=== PATIENT | male | born 1950 | race Caucasian/White ===

== ENCOUNTER 2016-12-03 23:14 | Observation (INO) | payer MEDICARE ==
[2016-12-03 23:15] VITALS: PULSE 127; BMI 25.9
--- NOTE | 2016-12-04 01:27 | C.PDOC ---
History Of Present Illness Pt presents with palpitations and chest pain worsening over the last 2-3 days. No f/c/n/v . Speaking in complete sentences. Time Seen by Provider: 12/04/16 01:26 Chief Complaint (Nursing): Chest Pain History Per: Patient History/Exam Limitations: no limitations Onset/Duration Of Symptoms: Days Current Symptoms Are (Timing): Still Present Context: Other Severity: Moderate Pain Scale Rating Of: 4 Quality: Dull Associated Symptoms: denies: Nausea, Dyspnea Modifying Factors: None Exacerbating Factors: Movement, Exertion Alleviating Factors: None Recent travel outside of the [place]: No Additional History Per: Patient Past Medical History Reviewed: Historical Data, Nursing Documentation, Vital Signs Vital Signs: Last Vital Signs Temp 97.6 F 12/03/16 23:39 Pulse 63 12/04/16 02:09 Resp 16 12/04/16 02:09 BP 90/56 L 12/04/16 02:09 Pulse Ox 98 12/04/16 02:09 - Medical History PMH: Anxiety, Atrial Fibrillation, CAD, Cardia Arrhythmia (pacemaker, last changed in 2012, AICD fired in ED after run of [employer]), CHF, HTN, Hypercholesterolemia, Peripheral Edema, Pneumonia (LONG AGO), TIA (MAYBE NOT SURE) Denies: Chronic Kidney Disease Surgical History: Pacemaker (last changed in 11/21/15) - 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 AUTOMATIC IMPLANT CARDIOVERTER/DEFIBRILLATOR (AICD) CHECK (06/15/13) CORONAR ARTERIOGR-2 CATH (07/18/13) INFLUENZA VACCINATION (07/04/14) LEFT HEART CARDIAC CATH (07/18/13) LT HEART ANGIOCARDIOGRAM (07/18/13) JEWISH OF CARDIAC RHYTHM, SINGLE (12/10/15) Family History: States: No Known Family Hx - Social History Hx Tobacco Use: No Hx Alcohol Use: No Hx Substance Use: No - Immunization History Hx Tetanus Toxoid Vaccination: No Hx Influenza Vaccination: Yes (07/2016) Hx Pneumococcal Vaccination: Yes (2012) Review Of Systems Constitutional: Negative for: Fever, Chills Eyes: Negative for: Redness ENT: Negative for: Throat Pain Cardiovascular: Positive for: Chest Pain, Palpitations Respiratory: Negative for: Shortness of Breath Gastrointestinal: Negative for: Nausea, Vomiting, Abdominal Pain Genitourinary: Negative for: Dysuria Musculoskeletal: Negative for: Back Pain Skin: Negative for: Rash, Lesions, Jaundice, Bruising Neurological: Negative for: Weakness Psych: Negative for: Anxiety Physical Exam - Physical Exam Appears: Non-toxic, No Acute Distress Skin: Warm, Dry Oral Mucosa: Moist Neck: Supple Chest: Symmetrical, Other (pacer left chest wall) Cardiovascular: Rhythm Regular Respiratory: No Rales, No Rhonchi, No Wheezing Gastrointestinal/Abdominal: Soft, No Tenderness, No Distention Back: Normal Inspection Extremity: Normal ROM Extremity: Bilateral: Atraumatic, Normal Color And Temperature, Normal ROM Neurological/Psych: Oriented x3, Normal Speech, Normal Cognition Gait: Steady ED Course And Treatment - Laboratory Results Result Diagrams: 12/04/16 01:37 12/04/16 01:37 ECG: Interpreted By Me, Viewed By Me ECG Rhythm: Sinus Rhythm (63), Nonspecific Changes (atrial sensed ventricular paced) O2 Sat by Pulse Oximetry: 97 Pulse Ox Interpretation: Normal - Radiology CXR: Interpreted by Me, Viewed By Me CXR Interpretation: Yes: Other (r pacer in place, unchanged from 08/2016). No: Infiltrates, Fracture, Pnemothorax Progress Note: cardiac work up Disposition Discussed With DrHéctor: Farhat Russo Jr. Comment: accepted the pt on his service and took over the care at 2:35 AM Doctor Will See Patient In The: ED Counseled Patient/Family Regarding: Studies Performed, Diagnosis - Disposition Disposition: HOSPITALIZED Disposition Time: 01:38 Condition: FAIR - Clinical Impression Clinical Impression: Congestive heart failure, Chest pain, Elevated brain natriuretic peptide (BNP) level, Hypothyroidism Decision To Admit - Pt Status Changed To: Hospital Disposition Of: Observation - . Bed Request Type: Telemetry Admitting Physician: Farhat Russo Jr. Patient Diagnosis: Congestive heart failure, Chest pain, Elevated brain natriuretic peptide (BNP) level
[2016-12-04 01:40] LABS: BASO # 0.1 K/uL (0.0-0.2); EOS # 0.1 K/uL (0.0-0.7); EOS % 1.1 % (0.0-4.0); HEMATOCRIT 38.9 % (35.0-51.0); LYMPH # 1.3 K/uL (1.0-4.3); LYMPH % 21.5 % (20.0-40.0); MEAN CELL VOLUME 98.1 fL (80.0-94.0); MEAN CORPUSCULAR HEMOGLOBIN 32.7 pg (27.0-31.0); MEAN CORPUSCULAR HGB CONC 33.3 g/dL (33.0-37.0); MEAN PLATELET VOLUME 9.8 fL (7.2-11.7); MONO # 0.9 K/uL (0.0-0.8); MONO % 15.3 % (0.0-10.0); NRBC % 0.1 % (0.0-2.0); RED CELL DISTRIBUTION WIDTH 13.5 % (11.5-14.5); WHITE BLOOD COUNT 6.1 K/uL (4.8-10.8)
[2016-12-04 01:47] LABS: CHLORIDE 97 mmol/L (98-107); INR 1.2
[2016-12-04 01:48] LABS: POTASSIUM 3.6 mmol/L (3.6-5.2); SODIUM 137 mmol/L (132-148)
[2016-12-04 01:50] LABS: ALB/GLOB RATIO 1.4 (1.0-2.1); AST/SGOT 25 U/L (17-59); BILIRUBIN,TOTAL 0.4 mg/dL (0.2-1.3); CARBON DIOXIDE 27 mmol/L (22-30); GFR AFRICAN-AMERICAN > 60; TOTAL PROTEIN 6.9 g/dL (6.3-8.3)
[2016-12-04 01:51] LABS: ALKALINE PHOSPHATASE 33 U/L (38-126); ALT/SGPT 29 U/L (21-72); BLOOD UREA NITROGEN 18 mg/dL (9-20); CALCIUM 8.7 mg/dl (8.6-10.4); GLUCOSE,RANDOM 102 mg/dL (75-110)
[2016-12-04 04:04] LABS: URINE BILIRUBIN NEGATIVE (NEGATIVE); URINE BLOOD NEGATIVE (NEGATIVE); URINE COLOR Straw (YELLOW); URINE GLUCOSE (UA) NORMAL (Normal); URINE KETONE NEGATIVE (NEGATIVE); URINE LEUKOCYTE ESTERASE NEG Leu/uL (Negative); URINE PROTEIN NEGATIVE (NEGATIVE); URINE UROBILINOGEN NORMAL mg/dL (0.2-1.0); WBC URINE 1 /hpf (0-5)
--- NOTE | 2016-12-04 06:22 | CP.PCM.HP ---
History of Present Illness - History of Present Illness History of Present Illness: Internal medicine H & P for Dr. Jyoti Krishnan, PGY-1 Pt S & E at bedside. 66M w/PMH sig for HTN, aortic valve disease s/p surgery admitted for chest pain x 1 day. Pain is constant, located in left chest with varying intensity since onset, severe, non radiating. Admits to non productive cough, occasional headaches. Denies N/V/F/C, SOB, abdominal pain, congestion, sore throat, back pain, blurry vision, constipation, diarrhea, dysuria, urinary frequency. PMH: HTN, aortic valve disease PSH: Aortic valve surgery All: PCN SH: Denies ETOH/Tobacco/Illicit drug use PMD: Karan Cards: Nic Present on Admission - Present on Admission Any Indicators Present on Admission: No History of DVT/PE: No History of Uncontrolled Diabetes: No Urinary Catheter: No Decubitus Ulcer Present: No Review of Systems - Review of Systems All systems: reviewed and no additional remarkable complaints except - Constitutional Constitutional: Headache. absent: Chills, Fever - EENT Eyes: absent: Change in Vision Ears: absent: Dizziness Nose/Mouth/Throat: absent: Sore Throat - Cardiovascular Cardiovascular: Chest Pain. absent: Diaphoresis, Leg Edema - Respiratory Respiratory: Cough. absent: As Per HPI - Gastrointestinal Gastrointestinal: absent: Abdominal Pain, Nausea, Vomiting - Genitourinary Genitourinary: absent: Change in Urinary Stream, Dysuria - Musculoskeletal Musculoskeletal: absent: Back Pain - Integumentary Integumentary: absent: New Lesions - Neurological Neurological: absent: Weakness Past Patient History - Infectious Disease Hx of Infectious Diseases: None ( ) - Tetanus Immunizations Tetanus Immunization: Unknown - Past Medical History & Family History Past Medical History?: Yes - Past Social History Smoking Status: Never Smoked - CARDIAC Hx Atrial Fibrillation: Yes Hx Cardia Arrhythmia: Yes (pacemaker, last changed in 2012, AICD fired in ED after run of [employer]) Hx Congestive Heart Failure: Yes Hx Hypercholesterolemia: Yes Hx Hypertension: Yes Hx Pacemaker: Yes (last changed in 11/21/15) Hx Peripheral Edema: Yes - PULMONARY Hx Respiratory Disorders: Yes Hx Pneumonia: Yes (LONG AGO) - NEUROLOGICAL Hx Neurological Disorder: Yes Hx Transient Ischemic Attacks (TIA): Yes (MAYBE NOT SURE) - HEENT Other/Comment: wears glasses for reading - RENAL Hx Chronic Kidney Disease: No - ENDOCRINE/METABOLIC Hx Endocrine Disorders: No - HEMATOLOGICAL/ONCOLOGICAL Hx Blood Disorders: No - INTEGUMENTARY Hx Dermatological Problems: No - MUSCULOSKELETAL/RHEUMATOLOGICAL Hx Falls: No - GASTROINTESTINAL Hx Gastrointestinal Disorders: No - GENITOURINARY/GYNECOLOGICAL Hx Genitourinary Disorders: Yes Hx Prostate Problems: Yes ("OK NOW") - PSYCHIATRIC Hx Substance Use: No - SURGICAL HISTORY Hx Surgeries: Yes Hx Cardiac Catheterization: Yes (last done in December 2014) Hx Open Heart Surgery: Yes (1996, s/p prosthetic aortic valve placement) Hx Valve Replacement: Yes Other/Comment: ICD 21-NOV-2015. no additional information given - ANESTHESIA Hx Anesthesia: Yes Hx Anesthesia Reactions: No Hx Malignant Hyperthermia: No Meds Allergies/Adverse Reactions: Allergies Allergy/AdvReac Type Severity Reaction Status Date / Time orange juice Allergy Verified 12/03/16 23:41 Penicillins Allergy Verified 12/03/16 23:41 polyethylene glycol Allergy Verified 12/03/16 23:41 sodium bicarbonate Allergy Verified 12/03/16 23:41 lemon-[place] flavor Allergy Uncoded 12/03/16 23:41 Physical Exam - Constitutional Appears: Non-toxic, No Acute Distress - Head Exam Head Exam: ATRAUMATIC, NORMAL INSPECTION, NORMOCEPHALIC - Eye Exam Eye Exam: EOMI, Normal appearance, PERRL Pupil Exam: NORMAL ACCOMODATION, PERRL - ENT Exam ENT Exam: Mucous Membranes Moist, Normal Exam - Neck Exam Neck exam: Positive for: Full Rom, Normal Inspection - Respiratory Exam Respiratory Exam: Clear to Auscultation Bilateral, NORMAL BREATHING PATTERN. absent: Accessory Muscle Use, Chest Wall Tenderness, Rales, Rhonchi, Wheezes - Cardiovascular Exam Cardiovascular Exam: REGULAR RHYTHM, +S1, +S2 - GI/Abdominal Exam GI & Abdominal Exam: Normal Bowel Sounds, Soft. absent: Tenderness - Extremities Exam Extremities exam: Positive for: normal inspection. Negative for: pedal edema, tenderness - Back Exam Back exam: NORMAL INSPECTION - Neurological Exam Neurological exam: Alert, CN II-XII Intact, Oriented x3 - Psychiatric Exam Psychiatric exam: Normal Affect, Normal Mood - Skin Skin Exam: Dry, Intact, Normal Color, Warm Additional comments: Well healed midline chest scar Results - Vital Signs Recent Vital Signs: Last Vital Signs Temp 97.4 F L 12/04/16 04:05 Pulse 60 12/04/16 04:05 Resp 20 12/04/16 04:05 BP 94/58 L 12/04/16 04:05 Pulse Ox 96 12/04/16 04:05 - Labs Result Diagrams: 12/04/16 01:37 12/04/16 01:37 Labs: Laboratory Results - last 24 hr 12/04/16 03:58 Urine Color Straw Urine Clarity Clear Urine pH 6.0 Ur Specific [place] 1.004 Urine Protein Negative Urine Glucose (UA) Normal Urine Ketones Negative Urine Blood Negative Urine Nitrate Negative Urine Bilirubin Negative Urine Urobilinogen Normal Ur Leukocyte Esterase Neg Urine WBC (Auto) 1 Ur Squamous Epith Cells < 1 Assessment & Plan - Assessment and Plan (Free Text) Assessment: Chest pain Admit to tele FU serial EKGs FU serial ROMIs FU lipid panel FU A1c TSH 11.3 BNP 1999 Troponin neg x 1 Cont home med: Amiodarone, Crestor, ASA, Renexa cardio consulted- Nic HTN Cont home meds: Aldactone, Bumex, Toprol XL, Enalapril HLD Cont home med: Fenofibrate Constipation Cont home med: Colace, Headache Tylenol PRN Health maintenance meds Cont home meds: Vitamin C, MV, Feosol, Potassium Chloride GI/DVT ppx SCDs Heparin Protonix Dispo HHD VS Q6H DW attending - Date & Time Date: 12/04/16 Time: 04:00
[2016-12-04 06:44] LABS: CHOLESTEROL 90 mg/dL (0-199)
[2016-12-04] MEDS: Multivitamin With Minerals Tab PO SCH (09:55)
[2016-12-04] MEDS: Pantoprazole 20 mg EC Tab PO SCH (09:56)
[2016-12-04] MEDS: Metoprolol Succinate 50 mg XL Tab PO SCH (09:56)
[2016-12-04] MEDS: Ranolazine 500 mg Extended Release Tablets PO SCH ×2 (13:09→18:03)
--- NOTE | 2016-12-04 13:24 | CP.PCM.PN ---
Subjective - Date & Time of Evaluation Date of Evaluation: 12/04/16 Time of Evaluation: 08:15 - Subjective Subjective: Medicine Note- Hospitalist Service Patient was seen and examined at bedside. Patient reports no acute complaints at the moment. Patient appears comfortable in bed, resting. He states that for the last four days, he's had intermittent chest pain, and he came in because it became too intolerable. He says he has had chest pain like this before. No events overnight, per nursing. Objective - Vital Signs/Intake and Output Vital Signs (last 24 hours): Temp Pulse Resp BP Pulse Ox 98.6 F 60 20 100/58 L 98 12/04/16 07:55 12/04/16 07:55 12/04/16 07:55 12/04/16 09:56 12/04/16 07:55 Intake and Output: 12/04/16 12/04/16 06:59 18:59 Intake Total 240 Balance 240 - Medications Medications: Current Medications Acetaminophen (Tylenol 325mg Tab) 650 mg PO Q6 PRN PRN Reason: Headache Amiodarone HCl (Cordarone) 100 mg PO DAILY [facility] Last Admin: 12/04/16 13:08 Dose: 100 mg Ascorbic Acid (Vitamin C 500 Mg Tab) 500 mg PO DAILY [facility] Last Admin: 12/04/16 09:56 Dose: 500 mg Aspirin (Ecotrin) 81 mg PO QPM [facility] Bumetanide (Bumex) 1 mg PO DAILY [facility] Last Admin: 12/04/16 13:09 Dose: 1 mg Docusate Sodium (Colace) 100 mg PO BID [facility] Last Admin: 12/04/16 09:57 Dose: 100 mg Enalapril Maleate (Vasotec) 5 mg PO BID [facility] Last Admin: 12/04/16 09:56 Dose: 5 mg Fenofibrate (Tricor) 145 mg PO QPM [facility] Ferrous Sulfate (Feosol) 325 mg PO DAILY [facility] Last Admin: 12/04/16 09:57 Dose: 325 mg Heparin Sodium (Porcine) (Heparin) 5,000 units SC Q8 [facility] Last Admin: 12/04/16 13:12 Dose: 5,000 units Metoprolol Succinate (Toprol Xl) 50 mg PO DAILY [facility] Last Admin: 12/04/16 09:56 Dose: Not Given Multivitamins/Minerals (Therapeutic-M Tab) 1 tab PO DAILY [facility] Last Admin: 12/04/16 09:55 Dose: 1 tab Pantoprazole Sodium (Protonix Ec Tab) 20 mg PO DAILY [facility] Last Admin: 12/04/16 09:56 Dose: 20 mg Potassium Chloride (Klor-Con 10) 10 meq PO QPM [facility] Ranolazine (Ranexa) 1,000 mg PO BID [facility] Last Admin: 12/04/16 13:09 Dose: 1,000 mg Rosuvastatin Calcium (Crestor) 5 mg PO HS [facility] Spironolactone (Aldactone) 25 mg PO DAILY [facility] Last Admin: 12/04/16 09:57 Dose: 25 mg - Labs Labs: PT 13.3 SECONDS (9.7-12.2) H 12/04/16 01:37 INR 1.2 12/04/16 01:37 APTT 31 SECONDS (21-34) 12/04/16 01:37 - Constitutional Appears: Non-toxic, No Acute Distress - Head Exam Head Exam: ATRAUMATIC, NORMAL INSPECTION, NORMOCEPHALIC - Eye Exam Pupil Exam: NORMAL ACCOMODATION, PERRL - ENT Exam ENT Exam: Mucous Membranes Moist - Respiratory Exam Respiratory Exam: Clear to Ausculation Bilateral, NORMAL BREATHING PATTERN. absent: Prolonged Expiratory Phase, Rales, Rhonchi, Wheezes - Cardiovascular Exam Cardiovascular Exam: REGULAR RHYTHM, +S1, +S2 - GI/Abdominal Exam GI & Abdominal Exam: Soft, Normal Bowel Sounds. absent: Tenderness, Diminished Bowel Sounds, Hypoactive Bowel Sounds - Extremities Exam Extremities Exam: Normal Capillary Refill, Normal Inspection - Neurological Exam Neurological Exam: Alert, Awake, Oriented x3 - Psychiatric Exam Psychiatric exam: Normal Affect, Normal Mood - Skin Skin Exam: Dry, Intact, Normal Color, Warm Assessment and Plan - Assessment and Plan (Free Text) Assessment: Chest pain Admit to tele cardio consulted- Dr. Lucero- consulted Dr. Hercules for ICD check EKG- atrial sensed paced rhythm ROMIs negative x 3 Lipid panel normal HgbA1c pending TSH 11.3 BNP 2000 Troponin neg x 1 Cont home med: Amiodarone 100mg PO Daily HTN Cont home meds: Aldactone 25mg PO Daily Toprol XL 50mg PO Daily Enalapril 5mg PO BID Bumetanide 1mg PO Daily Hypothyroidism TSH 11.3 f/u repeat TSH and Free T4 HLD Cont home med: Fenofibrate 145mg PO QPM Lipid panel WNL Constipation Cont home med: Colace 100mg PO BID Headache Tylenol PRN Prophylactic measure Protonix 20mg PO Daily Heparin 5000U SC Q8h SCDs Cont home meds: Vitamin C, MV, Feosol 325mg PO Daily, Potassium Chloride Dispo HHD VS Q6H DW attending
--- NOTE | 2016-12-04 16:32 | RAD ---
PROCEDURE: CHEST RADIOGRAPH, 1 VIEW HISTORY: chest pain COMPARISON: Comparison chest 09/02/2026 FINDINGS: LUNGS: No acute consolidation or effusion. PLEURA: No pneumothorax or pleural fluid seen. CARDIOVASCULAR: Sternotomy wires again noted. Multi lead pacemaker/ defibrillator unchanged OSSEOUS STRUCTURES: No significant abnormalities. VISUALIZED UPPER ABDOMEN: Normal. OTHER FINDINGS: None. IMPRESSION: Cardiomegaly. No focal consolidation.
[2016-12-04 17:24] LABS: CHLORIDE 99 mmol/L (98-107); SODIUM 137 mmol/L (132-148)
[2016-12-04 17:26] LABS: ALB/GLOB RATIO 1.3 (1.0-2.1); ALKALINE PHOSPHATASE 32 U/L (38-126); AST/SGOT 34 U/L (17-59); BILIRUBIN,TOTAL 0.5 mg/dL (0.2-1.3); CARBON DIOXIDE 25 mmol/L (22-30); GFR AFRICAN-AMERICAN > 60; TOTAL PROTEIN 6.7 g/dL (6.3-8.3)
[2016-12-04 17:27] LABS: ALT/SGPT 20 U/L (21-72); BLOOD UREA NITROGEN 18 mg/dL (9-20); CALCIUM 8.4 mg/dl (8.6-10.4); GLUCOSE,RANDOM 87 mg/dL (75-110); PHOSPHOROUS 3.3 mg/dL (2.5-4.5)
[2016-12-04] MEDS: Potassium Chloride 10 mEq ER Tab PO SCH (18:03)
--- NOTE | 2016-12-04 20:22 | CP.PCM.CON ---
History of Present Illness - History of Present Illness History of Present Illness: Reason For Consultation: Chest Pain 66M w/PMH sig for HTN, aortic valve disease s/p AVR admitted for chest pain x 1 day. Pain is constant, located in left chest with varying intensity since onset , severe, non radiating. Admits to non productive cough, occasional headaches. Denies N/V/F/C, SOB, abdominal pain, congestion, sore throat, back pain, blurry vision, constipation, diarrhea, dysuria, urinary frequency. PMH: HTN, aortic valve disease PSH: S/P AVR All: PCN SH: Denies ETOH/Tobacco/Illicit drug use PMD: Russo Present on Admission - Present on Admission Any Indicators Present on Admission: No History of DVT/PE: No History of Uncontrolled Diabetes: No Urinary Catheter: No Decubitus Ulcer Present: No Review of Systems - Review of Systems All systems: reviewed and no additional remarkable complaints except - Constitutional Constitutional: Headache. absent: Chills, Fever - EENT Eyes: absent: Change in Vision Ears: absent: Dizziness Nose/Mouth/Throat: absent: Sore Throat - Cardiovascular Cardiovascular: Chest Pain. absent: Diaphoresis, Leg Edema - Respiratory Respiratory: Cough. absent: As Per HPI - Gastrointestinal Gastrointestinal: absent: Abdominal Pain, Nausea, Vomiting - Genitourinary Genitourinary: absent: Change in Urinary Stream, Dysuria - Musculoskeletal Musculoskeletal: absent: Back Pain - Integumentary Integumentary: absent: New Lesions - Neurological Neurological: absent: Weakness - GENITOURINARY/GYNECOLOGICAL Hx Genitourinary Disorders: Yes Hx Prostate Problems: Yes ("OK NOW") - PSYCHIATRIC Hx Substance Use: No Meds Allergies/Adverse Reactions: Allergies Allergy/AdvReac Type Severity Reaction Status Date / Time orange juice Allergy Verified 12/03/16 23:41 Penicillins Allergy Verified 12/03/16 23:41 polyethylene glycol Allergy Verified 12/03/16 23:41 sodium bicarbonate Allergy Verified 12/03/16 23:41 lemon-[place] flavor Allergy Uncoded 12/03/16 23:41 Physical Exam - Constitutional Appears: Non-toxic, No Acute Distress - Head Exam Head Exam: ATRAUMATIC, NORMAL INSPECTION, NORMOCEPHALIC - Eye Exam Eye Exam: EOMI, Normal appearance, PERRL Pupil Exam: NORMAL ACCOMODATION, PERRL - ENT Exam ENT Exam: Mucous Membranes Moist, Normal Exam - Neck Exam Neck exam: Positive for: Full Rom, Normal Inspection - Respiratory Exam Respiratory Exam: Clear to Auscultation Bilateral, NORMAL BREATHING PATTERN. absent: Accessory Muscle Use, Chest Wall Tenderness, Rales, Rhonchi, Wheezes - Cardiovascular Exam Cardiovascular Exam: REGULAR RHYTHM, +S1, +S2 - GI/Abdominal Exam GI & Abdominal Exam: Normal Bowel Sounds, Soft. absent: Tenderness - Extremities Exam Extremities exam: Positive for: normal inspection. Negative for: pedal edema, tenderness - Back Exam Back exam: NORMAL INSPECTION - Neurological Exam Neurological exam: Alert, CN II-XII Intact, Oriented x3 - Psychiatric Exam Psychiatric exam: Normal Affect, Normal Mood - Skin Skin Exam: Dry, Intact, Normal Color, Warm Additional comments: Well healed midline chest scar Past Patient History - Infectious Disease Hx of Infectious Diseases: None ( ) - Tetanus Immunizations Tetanus Immunization: Unknown - Past Medical History & Family History Past Medical History?: Yes - Past Social History Smoking Status: Never Smoked - CARDIAC Hx Atrial Fibrillation: Yes Hx Cardia Arrhythmia: Yes (pacemaker, last changed in 2012, AICD fired in ED after run of [employer]) Hx Congestive Heart Failure: Yes Hx Hypercholesterolemia: Yes Hx Hypertension: Yes Hx Pacemaker: Yes (last changed in 11/21/15) Hx Peripheral Edema: Yes - PULMONARY Hx Respiratory Disorders: Yes Hx Pneumonia: Yes (LONG AGO) - NEUROLOGICAL Hx Neurological Disorder: Yes Hx Transient Ischemic Attacks (TIA): Yes (MAYBE NOT SURE) - HEENT Other/Comment: wears glasses for reading - RENAL Hx Chronic Kidney Disease: No - ENDOCRINE/METABOLIC Hx Endocrine Disorders: No - HEMATOLOGICAL/ONCOLOGICAL Hx Blood Disorders: No - INTEGUMENTARY Hx Dermatological Problems: No - MUSCULOSKELETAL/RHEUMATOLOGICAL Hx Falls: No - GASTROINTESTINAL Hx Gastrointestinal Disorders: No - GENITOURINARY/GYNECOLOGICAL Hx Genitourinary Disorders: Yes Hx Prostate Problems: Yes ("OK NOW") - PSYCHIATRIC Hx Substance Use: No - SURGICAL HISTORY Hx Surgeries: Yes Hx Cardiac Catheterization: Yes (last done in December 2014) Hx Open Heart Surgery: Yes (1996, s/p prosthetic aortic valve placement) Hx Valve Replacement: Yes Other/Comment: ICD 21-NOV-2015. no additional information given - ANESTHESIA Hx Anesthesia: Yes Hx Anesthesia Reactions: No Hx Malignant Hyperthermia: No Meds Allergies/Adverse Reactions: Allergies Allergy/AdvReac Type Severity Reaction Status Date / Time orange juice Allergy Verified 12/03/16 23:41 Penicillins Allergy Verified 12/03/16 23:41 polyethylene glycol Allergy Verified 12/03/16 23:41 sodium bicarbonate Allergy Verified 12/03/16 23:41 lemon-[place] flavor Allergy Uncoded 12/03/16 23:41 - Medications Medications: Current Medications Acetaminophen (Tylenol 325mg Tab) 650 mg PO Q6 PRN PRN Reason: Headache Amiodarone HCl (Cordarone) 100 mg PO DAILY [facility] Last Admin: 12/04/16 13:08 Dose: 100 mg Ascorbic Acid (Vitamin C 500 Mg Tab) 500 mg PO DAILY [facility] Last Admin: 12/04/16 09:56 Dose: 500 mg Aspirin (Ecotrin) 81 mg PO QPM [facility] Last Admin: 12/04/16 18:02 Dose: 81 mg Bumetanide (Bumex) 1 mg PO DAILY [facility] Last Admin: 12/04/16 13:09 Dose: 1 mg Docusate Sodium (Colace) 100 mg PO BID [facility] Last Admin: 12/04/16 18:02 Dose: 100 mg Enalapril Maleate (Vasotec) 5 mg PO BID [facility] Last Admin: 12/04/16 18:00 Dose: Not Given Fenofibrate (Tricor) 145 mg PO QPM [facility] Last Admin: 12/04/16 18:00 Dose: Not Given Ferrous Sulfate (Feosol) 325 mg PO DAILY [facility] Last Admin: 12/04/16 09:57 Dose: 325 mg Heparin Sodium (Porcine) (Heparin) 5,000 units SC Q8 [facility] Last Admin: 12/04/16 13:12 Dose: 5,000 units Metoprolol Succinate (Toprol Xl) 50 mg PO DAILY [facility] Last Admin: 12/04/16 09:56 Dose: Not Given Multivitamins/Minerals (Therapeutic-M Tab) 1 tab PO DAILY [facility] Last Admin: 12/04/16 09:55 Dose: 1 tab Pantoprazole Sodium (Protonix Ec Tab) 20 mg PO DAILY [facility] Last Admin: 12/04/16 09:56 Dose: 20 mg Potassium Chloride (Klor-Con 10) 10 meq PO QPM [facility] Last Admin: 12/04/16 18:03 Dose: 10 meq Ranolazine (Ranexa) 1,000 mg PO BID [facility] Last Admin: 12/04/16 18:03 Dose: 1,000 mg Rosuvastatin Calcium (Crestor) 5 mg PO [facility] Spironolactone (Aldactone) 25 mg PO DAILY [facility] Last Admin: 12/04/16 09:57 Dose: 25 mg Results - Vital Signs Recent Vital Signs: Last Vital Signs Temp 98.2 F 12/04/16 15:33 Pulse 63 12/04/16 15:33 Resp 18 12/04/16 15:33 BP 94/60 L 12/04/16 18:00 Pulse Ox 95 12/04/16 15:33 - Labs Result Diagrams: 12/04/16 01:37 12/04/16 16:57 Labs: Laboratory Results - last 24 hr 12/04/16 12/04/16 12/04/16 03:58 06:00 08:00 Sodium Potassium Chloride Carbon Dioxide Anion Gap BUN Creatinine Est GFR ( Amer) Est GFR (Non-Af Amer) Random Glucose Calcium Phosphorus Magnesium Total Bilirubin AST ALT Alkaline Phosphatase Total Creatine Kinase 51 L CK-MB (Mass) 1.02 Troponin I, Quant 0.0430 Total Protein Albumin Globulin Albumin/Globulin Ratio Triglycerides 81 D Cholesterol 90 LDL Cholesterol Direct 32 HDL Cholesterol 35 Urine Color Straw Urine Clarity Clear Urine pH 6.0 Ur Specific [place] 1.004 Urine Protein Negative Urine Glucose (UA) Normal Urine Ketones Negative Urine Blood Negative Urine Nitrate Negative Urine Bilirubin Negative Urine Urobilinogen Normal Ur Leukocyte Esterase Neg Urine WBC (Auto) 1 Ur Squamous Epith Cells < 1 12/04/16 16:57 Sodium 137 Potassium 4.0 Chloride 99 Carbon Dioxide 25 Anion Gap 16 BUN 18 Creatinine 1.4 Est GFR ( Amer) > 60 Est GFR (Non-Af Amer) 51 Random Glucose 87 Calcium 8.4 L Phosphorus 3.3 Magnesium 2.0 Total Bilirubin 0.5 AST 34 ALT 20 L D Alkaline Phosphatase 32 L Total Creatine Kinase 61 CK-MB (Mass) 1.02 Troponin I, Quant 0.0300 Total Protein 6.7 Albumin 3.8 Globulin 2.9 Albumin/Globulin Ratio 1.3 Triglycerides Cholesterol LDL Cholesterol Direct HDL Cholesterol Urine Color Urine Clarity Urine pH Ur Specific [place] Urine Protein Urine Glucose (UA) Urine Ketones Urine Blood Urine Nitrate Urine Bilirubin Urine Urobilinogen Ur Leukocyte Esterase Urine WBC (Auto) Ur Squamous Epith Cells Assessment & Plan - Assessment and Plan (Free Text) Assessment: Chest pain- Non Cardiac Recent Cath: Normal Coronaries Most likely [place] skeletal HTN Cont home meds: Aldactone 25mg PO Daily Toprol XL 50mg PO Daily Enalapril 5mg PO BID Bumetanide 1mg PO Daily Hypothyroidism TSH 11.3 f/u repeat TSH and Free T4 HLD Cont home med: Fenofibrate 145mg PO QPM Lipid panel WNL Chronic systolic CHF s/p AICD Consult Dr. Bautista for ICD check Headache Tylenol PRN Prophylactic measure Protonix 20mg PO Daily Heparin 5000U SC Q8h SCDs
[2016-12-05 06:21] LABS: BASO % 0.5 % (0.0-2.0); EOS # 0.1 K/uL (0.0-0.7); HEMATOCRIT 37.6 % (35.0-51.0); LYMPH % 13.9 % (20.0-40.0); MEAN CELL VOLUME 95.2 fL (80.0-94.0); MEAN CORPUSCULAR HEMOGLOBIN 33.2 pg (27.0-31.0); MEAN CORPUSCULAR HGB CONC 34.9 g/dL (33.0-37.0); MEAN PLATELET VOLUME 8.9 fL (7.2-11.7); MONO # 0.7 K/uL (0.0-0.8); MONO % 9.7 % (0.0-10.0); RED CELL DISTRIBUTION WIDTH 13.5 % (11.5-14.5); WHITE BLOOD COUNT 6.8 K/uL (4.8-10.8)
[2016-12-05 06:29] LABS: CHLORIDE 100 mmol/L (98-107)
[2016-12-05 06:30] LABS: POTASSIUM 3.4 mmol/L (3.6-5.2); SODIUM 139 mmol/L (132-148)
[2016-12-05 06:32] LABS: ALB/GLOB RATIO 1.3 (1.0-2.1); ALKALINE PHOSPHATASE 34 U/L (38-126); ALT/SGPT 24 U/L (21-72); AST/SGOT 25 U/L (17-59); BILIRUBIN,TOTAL 0.6 mg/dL (0.2-1.3); BLOOD UREA NITROGEN 19 mg/dL (9-20); CARBON DIOXIDE 25 mmol/L (22-30); GFR AFRICAN-AMERICAN > 60; TOTAL PROTEIN 6.9 g/dL (6.3-8.3)
[2016-12-05 06:33] LABS: CALCIUM 8.4 mg/dl (8.6-10.4); GLUCOSE,RANDOM 105 mg/dL (75-110)
[2016-12-05 07:01] LABS: THYROID STIMULATING HORMONE 5.65 mIU/L (0.46-4.68)
--- NOTE | 2016-12-05 07:01 | CP.PCM.PN ---
Subjective - Date & Time of Evaluation Date of Evaluation: 12/05/16 Time of Evaluation: 08:25 Objective - Vital Signs/Intake and Output Vital Signs (last 24 hours): Temp Pulse Resp BP Pulse Ox 98.8 F 75 20 107/67 96 12/04/16 23:15 12/04/16 23:15 12/04/16 23:15 12/04/16 23:15 12/04/16 23:15 - Medications Medications: Current Medications Acetaminophen (Tylenol 325mg Tab) 650 mg PO Q6 PRN PRN Reason: Headache Amiodarone HCl (Cordarone) 100 mg PO DAILY [facility] Last Admin: 12/04/16 13:08 Dose: 100 mg Ascorbic Acid (Vitamin C 500 Mg Tab) 500 mg PO DAILY [facility] Last Admin: 12/04/16 09:56 Dose: 500 mg Aspirin (Ecotrin) 81 mg PO QPM [facility] Last Admin: 12/04/16 18:02 Dose: 81 mg Bumetanide (Bumex) 1 mg PO DAILY [facility] Last Admin: 12/04/16 13:09 Dose: 1 mg Docusate Sodium (Colace) 100 mg PO BID [facility] Last Admin: 12/04/16 18:02 Dose: 100 mg Enalapril Maleate (Vasotec) 5 mg PO BID [facility] Last Admin: 12/04/16 18:00 Dose: Not Given Fenofibrate (Tricor) 145 mg PO QPM [facility] Last Admin: 12/04/16 18:00 Dose: Not Given Ferrous Sulfate (Feosol) 325 mg PO DAILY [facility] Last Admin: 12/04/16 09:57 Dose: 325 mg Heparin Sodium (Porcine) (Heparin) 5,000 units SC Q8 [facility] Last Admin: 12/05/16 05:07 Dose: Not Given Metoprolol Succinate (Toprol Xl) 50 mg PO DAILY [facility] Last Admin: 12/04/16 09:56 Dose: Not Given Multivitamins/Minerals (Therapeutic-M Tab) 1 tab PO DAILY [facility] Last Admin: 12/04/16 09:55 Dose: 1 tab Pantoprazole Sodium (Protonix Ec Tab) 20 mg PO DAILY [facility] Last Admin: 12/04/16 09:56 Dose: 20 mg Potassium Chloride (Klor-Con 10) 10 meq PO QPM [facility] Last Admin: 12/04/16 18:03 Dose: 10 meq Ranolazine (Ranexa) 1,000 mg PO BID [facility] Last Admin: 12/04/16 18:03 Dose: 1,000 mg Rosuvastatin Calcium (Crestor) 5 mg PO HS [facility] Last Admin: 12/04/16 22:13 Dose: 5 mg Spironolactone (Aldactone) 25 mg PO DAILY [facility] Last Admin: 12/04/16 09:57 Dose: 25 mg - Labs Labs: 12/05/16 06:13 12/05/16 06:13 PT 13.3 SECONDS (9.7-12.2) H 12/04/16 01:37 INR 1.2 12/04/16 01:37 APTT 34 SECONDS (21-34) 12/05/16 06:13 Assessment and Plan - Assessment and Plan (Free Text) Assessment: Chest pain Admit to tele cardio consulted- Dr. Lucero- consulted Dr. Hercules for ICD check EKG- atrial sensed paced rhythm ROMIs negative x 3 Lipid panel normal HgbA1c pending TSH 11.3 BNP 2000 Troponin neg x 1 Cont home med: Amiodarone 100mg PO Daily HTN Cont home meds: Aldactone 25mg PO Daily Toprol XL 50mg PO Daily Enalapril 5mg PO BID Bumetanide 1mg PO Daily Hypothyroidism TSH 11.3 f/u repeat TSH and Free T4 HLD Cont home med: Fenofibrate 145mg PO QPM Lipid panel WNL Constipation Cont home med: Colace 100mg PO BID Headache Tylenol PRN Prophylactic measure Protonix 20mg PO Daily Heparin 5000U SC Q8h SCDs Cont home meds: Vitamin C, MV, Feosol 325mg PO Daily, Potassium Chloride Dispo HHD VS Q6H DW attending
--- NOTE | 2016-12-05 08:34 | CP.PCM.CON ---
<Rafa Nogueira - Last Filed: 12/05/16 08:47> History of Present Illness - History of Present Illness History of Present Illness: Consult Note- Dr. Hercules' service Patient is a 66 year old male with PMHx of htn, aortic valve disease (rheumatic fever) that came in complaining of chest pain for one day, constant left sided , non radiating chest pain. Patient was seen by Dr. Lucero, who believes the pain is likely noncardiac in nature. We were consulted to evaluate for ICD function. Patient reports that since he has been here, his chest pain has resolved. PMH: HTN, aortic valve disease PSH: Aortic valve surgery All: PCN SH: Denies ETOH/Tobacco/Illicit drug use PMD: [employer]: Nic Review of Systems - Constitutional Constitutional: absent: Chills, Fever, Weight Loss - EENT Eyes: absent: Blurred Vision, Change in Vision - Cardiovascular Cardiovascular: absent: Chest Pain, Claudication, Leg Edema, Palpitations, Pedal Edema - Respiratory Respiratory: absent: Cough, Dyspnea, Dyspnea on Exertion, Wheezing - Gastrointestinal Gastrointestinal: absent: Belching, Constipation, Diarrhea, Nausea, Vomiting - Musculoskeletal Musculoskeletal: absent: Back Pain, Myalgias, Numbness - Psychiatric Psychiatric: absent: Anhedonia, Panic Attacks, Suicidal Ideation, Tactile Hallucinations - Endocrine Endocrine: absent: Fatigue, Palpitations Past Patient History - Infectious Disease Hx of Infectious Diseases: None ( ) - Tetanus Immunizations Tetanus Immunization: Unknown - Past Medical History & Family History Past Medical History?: Yes - Past Social History Smoking Status: Former Smoker Chewing Tobacco Use: No Cigar Use: No Alcohol: None Drugs: Denies - CARDIAC Hx Atrial Fibrillation: Yes Hx Cardia Arrhythmia: Yes (pacemaker, last changed in 2012, AICD fired in ED after run of PATHEOS) Hx Congestive Heart Failure: Yes Hx Hypercholesterolemia: Yes Hx Hypertension: Yes Hx Pacemaker: Yes (last changed in 11/21/15) Hx Peripheral Edema: Yes - PULMONARY Hx Respiratory Disorders: Yes Hx Pneumonia: Yes (LONG AGO) - NEUROLOGICAL Hx Neurological Disorder: Yes Hx Transient Ischemic Attacks (TIA): Yes (MAYBE NOT SURE) - HEENT Other/Comment: wears glasses for reading - RENAL Hx Chronic Kidney Disease: No - ENDOCRINE/METABOLIC Hx Endocrine Disorders: No - HEMATOLOGICAL/ONCOLOGICAL Hx Blood Disorders: No - INTEGUMENTARY Hx Dermatological Problems: No - MUSCULOSKELETAL/RHEUMATOLOGICAL Hx Falls: No - GASTROINTESTINAL Hx Gastrointestinal Disorders: No - GENITOURINARY/GYNECOLOGICAL Hx Genitourinary Disorders: Yes Hx Prostate Problems: Yes ("OK NOW") - PSYCHIATRIC Hx Substance Use: No - SURGICAL HISTORY Hx Surgeries: Yes Hx Cardiac Catheterization: Yes (last done in December 2014) Hx Open Heart Surgery: Yes (1996, s/p prosthetic aortic valve placement) Hx Valve Replacement: Yes Other/Comment: ICD 21-NOV-2015. no additional information given - ANESTHESIA Hx Anesthesia: Yes Hx Anesthesia Reactions: No Hx Malignant Hyperthermia: No Meds Allergies/Adverse Reactions: Allergies Allergy/AdvReac Type Severity Reaction Status Date / Time orange juice Allergy Verified 12/03/16 23:41 Penicillins Allergy Verified 12/03/16 23:41 polyethylene glycol Allergy Verified 12/03/16 23:41 sodium bicarbonate Allergy Verified 12/03/16 23:41 lemon-kiana flavor Allergy Uncoded 12/03/16 23:41 - Medications Medications: Current Medications Acetaminophen (Tylenol 325mg Tab) 650 mg PO Q6 PRN PRN Reason: Headache Amiodarone HCl (Cordarone) 100 mg PO DAILY [facility] Last Admin: 12/04/16 13:08 Dose: 100 mg Ascorbic Acid (Vitamin C 500 Mg Tab) 500 mg PO DAILY [facility] Last Admin: 12/04/16 09:56 Dose: 500 mg Aspirin (Ecotrin) 81 mg PO QPM [facility] Last Admin: 12/04/16 18:02 Dose: 81 mg Bumetanide (Bumex) 1 mg PO DAILY [facility] Last Admin: 12/04/16 13:09 Dose: 1 mg Docusate Sodium (Colace) 100 mg PO BID [facility] Last Admin: 12/04/16 18:02 Dose: 100 mg Enalapril Maleate (Vasotec) 5 mg PO BID [facility] Last Admin: 12/04/16 18:00 Dose: Not Given Fenofibrate (Tricor) 145 mg PO QPM [facility] Last Admin: 12/04/16 18:00 Dose: Not Given Ferrous Sulfate (Feosol) 325 mg PO DAILY [facility] Last Admin: 12/04/16 09:57 Dose: 325 mg Heparin Sodium (Porcine) (Heparin) 5,000 units SC Q8 [facility] Last Admin: 12/05/16 05:07 Dose: Not Given Metoprolol Succinate (Toprol Xl) 50 mg PO DAILY [facility] Last Admin: 12/04/16 09:56 Dose: Not Given Multivitamins/Minerals (Therapeutic-M Tab) 1 tab PO DAILY [facility] Last Admin: 12/04/16 09:55 Dose: 1 tab Pantoprazole Sodium (Protonix Ec Tab) 20 mg PO DAILY [facility] Last Admin: 12/04/16 09:56 Dose: 20 mg Potassium Chloride (Klor-Con 10) 10 meq PO QPM [facility] Last Admin: 12/04/16 18:03 Dose: 10 meq Ranolazine (Ranexa) 1,000 mg PO BID [facility] Last Admin: 12/04/16 18:03 Dose: 1,000 mg Rosuvastatin Calcium (Crestor) 5 mg PO HS [facility] Last Admin: 12/04/16 22:13 Dose: 5 mg Spironolactone (Aldactone) 25 mg PO DAILY [facility] Last Admin: 12/04/16 09:57 Dose: 25 mg Physical Exam - Constitutional Appears: Non-toxic, No Acute Distress - Head Exam Head Exam: ATRAUMATIC, NORMAL INSPECTION, NORMOCEPHALIC - Eye Exam Pupil Exam: NORMAL ACCOMODATION - ENT Exam ENT Exam: Mucous Membranes Moist - Respiratory Exam Respiratory Exam: Clear to Auscultation Bilateral, NORMAL BREATHING PATTERN. absent: Prolonged Expiratory Phase, Rales, Rhonchi, Wheezes - Cardiovascular Exam Cardiovascular Exam: REGULAR RHYTHM, +S1, +S2 Additional comments: pacemaker in place - GI/Abdominal Exam GI & Abdominal Exam: Normal Bowel Sounds, Soft. absent: Distended, Firm, Guarding, Tenderness - Extremities Exam Extremities exam: Positive for: normal capillary refill, pedal pulses present - Neurological Exam Neurological exam: Alert, CN II-XII Intact, Oriented x3 - Psychiatric Exam Psychiatric exam: Normal Affect, Normal Mood - Skin Skin Exam: Dry, Intact, Normal Color, Warm Results - Vital Signs Recent Vital Signs: Last Vital Signs Temp 98.8 F 12/04/16 23:15 Pulse 75 12/04/16 23:15 Resp 20 12/04/16 23:15 BP 107/67 12/04/16 23:15 Pulse Ox 96 12/04/16 23:15 - Labs Result Diagrams: 12/05/16 06:13 12/05/16 06:13 Labs: Laboratory Results - last 24 hr 12/04/16 12/04/1617 08:00 16:57 06:13 WBC 6.8 RBC 3.94 L Hgb 13.1 Hct 37.6 MCV 95.2 H D MCH 33.2 H MCHC 34.9 RDW 13.5 Plt Count 149 MPV 8.9 Neut % (Auto) 74.9 Lymph % (Auto) 13.9 L [place] % (Auto) 9.7 Eos % (Auto) 1.0 Baso % (Auto) 0.5 Neut # 5.1 Lymph # 1.0 [place] # 0.7 Eos # 0.1 Baso # 0.0 APTT 34 Sodium 137 139 Potassium 4.0 3.4 L Chloride 99 100 Carbon Dioxide 25 25 Anion Gap 16 17 BUN 18 19 Creatinine 1.4 1.2 Est GFR ( Amer) > 60 > 60 Est GFR (Non-Af Amer) 51 > 60 Random Glucose 87 105 Calcium 8.4 L 8.4 L Phosphorus 3.3 Magnesium 2.0 Total Bilirubin 0.5 0.6 AST 34 25 ALT 20 L D 24 Alkaline Phosphatase 32 L 34 L Total Creatine Kinase 51 L 61 CK-MB (Mass) 1.02 1.02 Troponin I, Quant 0.0430 0.0300 Total Protein 6.7 6.9 Albumin 3.8 3.9 Globulin 2.9 3.0 Albumin/Globulin Ratio 1.3 1.3 Free T4 1.29 TSH 3rd Generation 5.65 H Assessment & Plan - Assessment and Plan (Free Text) Assessment: 66 year year old male presented to the ED complaining of chest pain, hx of htn and valvular heart disease, s/p surgery. Patient has a pacemaker in place. Per Dr. Hercules, it was interrogated today, fully functioal, no V tach detected. Patient is okay to be discharged home from his standpoint. <Rohan Hercules - Last Filed: 12/06/16 10:23> Results - Vital Signs Recent Vital Signs: Last Vital Signs Temp 98.6 F 12/05/16 15:22 Pulse 81 12/05/16 15:30 Resp 18 12/05/16 15:22 BP 94/58 L 12/05/16 18:11 Pulse Ox 95 12/05/16 15:22 - Labs Result Diagrams: 12/05/16 06:13 12/05/16 06:13 Labs: Laboratory Results - last 24 hr 12/04/16 06:00 Hemoglobin A1c 5.6 Attending/Attestation - Attestation I have personally seen and examined this patient.: Yes I have fully participated in the care of the patient.: Yes I have reviewed all pertinent clinical information: Yes Notes (Text): 12/06/16 10:23 icd ok interrogation follow up in office and Dr Russo
[2016-12-05 08:56] VITALS: RESP 18
[2016-12-05] MEDS ORDERED: Promethazine/Cod 6.25mg-10mg/5ml Syr UD PO PRN (10:55)
[2016-12-05] MEDS ORDERED: guaiFENesin 600 mg ER Tab PO ONE ×2 (10:56→16:07)
[2016-12-05] MEDS: Multivitamin With Minerals Tab PO SCH (10:59)
[2016-12-05] MEDS: Ranolazine 500 mg Extended Release Tablets PO SCH ×2 (10:59→18:10)
[2016-12-05] MEDS: Pantoprazole 20 mg EC Tab PO SCH (11:01)
[2016-12-05] MEDS: Metoprolol Succinate 50 mg XL Tab PO SCH (11:02)
[2016-12-05 15:24] VITALS: PULSE 81; TEMP 98.6; O2SAT 95
[2016-12-05] MEDS ORDERED: Simethicone 80 mg Chewtab PO ONE (16:07)
--- NOTE | 2016-12-05 17:46 | CP.PCM.PN ---
Subjective - Date & Time of Evaluation Date of Evaluation: 12/05/16 Time of Evaluation: 08:10 - Subjective Subjective: Patient is a 66 year old male with PMHx of htn, aortic valve disease (rheumatic fever) that came in complaining of chest pain for one day, constant left sided , non radiating chest pain. PMH: HTN, aortic valve disease PSH: Aortic valve surgery All: PCN SH: Denies ETOH/Tobacco/Illicit drug use PMD: [employer] Review of Systems - Constitutional Constitutional: absent: Chills, Fever, Weight Loss - EENT Eyes: absent: Blurred Vision, Change in Vision - Cardiovascular Cardiovascular: absent: Chest Pain, Claudication, Leg Edema, Palpitations, Pedal Edema - Respiratory Respiratory: absent: Cough, Dyspnea, Dyspnea on Exertion, Wheezing - Gastrointestinal Gastrointestinal: absent: Belching, Constipation, Diarrhea, Nausea, Vomiting - Musculoskeletal Musculoskeletal: absent: Back Pain, Myalgias, Numbness - Psychiatric Psychiatric: absent: Anhedonia, Panic Attacks, Suicidal Ideation, Tactile Hallucinations - Endocrine Endocrine: absent: Fatigue, Palpitations Past Patient History - Infectious Disease Hx of Infectious Diseases: None ( ) - Tetanus Immunizations Tetanus Immunization: Unknown - Past Medical History & Family History Past Medical History?: Yes - Past Social History Smoking Status: Former Smoker Chewing Tobacco Use: No Cigar Use: No Alcohol: None Drugs: Denies - CARDIAC Hx Atrial Fibrillation: Yes Hx Cardia Arrhythmia: Yes (pacemaker, last changed in 2012, AICD fired in ED after run of indidebt) Hx Congestive Heart Failure: Yes Hx Hypercholesterolemia: Yes Hx Hypertension: Yes Hx Pacemaker: Yes (last changed in 11/21/15) Hx Peripheral Edema: Yes - PULMONARY Hx Respiratory Disorders: Yes Hx Pneumonia: Yes (LONG AGO) - NEUROLOGICAL Hx Neurological Disorder: Yes Hx Transient Ischemic Attacks (TIA): Yes (MAYBE NOT SURE) - HEENT Other/Comment: wears glasses for reading - RENAL Hx Chronic Kidney Disease: No - ENDOCRINE/METABOLIC Hx Endocrine Disorders: No - HEMATOLOGICAL/ONCOLOGICAL Hx Blood Disorders: No - INTEGUMENTARY Hx Dermatological Problems: No - MUSCULOSKELETAL/RHEUMATOLOGICAL Hx Falls: No - GASTROINTESTINAL Hx Gastrointestinal Disorders: No - GENITOURINARY/GYNECOLOGICAL Hx Genitourinary Disorders: Yes Hx Prostate Problems: Yes ("OK NOW") - PSYCHIATRIC Hx Substance Use: No - SURGICAL HISTORY Hx Surgeries: Yes Hx Cardiac Catheterization: Yes (last done in December 2014) Hx Open Heart Surgery: Yes (1996, s/p prosthetic aortic valve placement) Hx Valve Replacement: Yes Other/Comment: ICD -NOV-2015. no additional information given - ANESTHESIA Hx Anesthesia: Yes Hx Anesthesia Reactions: No Hx Malignant Hyperthermia: No Meds Allergies/Adverse Reactions: Allergies Allergy/AdvReac Type Severity Reaction Status Date / Time orange juice Allergy Verified 12/03/16 23:41 Penicillins Allergy Verified 12/03/16 23:41 polyethylene glycol Allergy Verified 12/03/16 23:41 sodium bicarbonate Allergy Verified 12/03/16 23:41 lemon-[place] flavor Allergy Uncoded 12/03/16 23:41 - Medications Medications: Current Medications Acetaminophen (Tylenol 325mg Tab) 650 mg PO Q6 PRN PRN Reason: Headache Amiodarone HCl (Cordarone) 100 mg PO DAILY [facility] Last Admin: 12/04/16 13:08 Dose: 100 mg Ascorbic Acid (Vitamin C 500 Mg Tab) 500 mg PO DAILY [facility] Last Admin: 12/04/16 09:56 Dose: 500 mg Aspirin (Ecotrin) 81 mg PO QPM [facility] Last Admin: 12/04/16 18:02 Dose: 81 mg Bumetanide (Bumex) 1 mg PO DAILY [facility] Last Admin: 12/04/16 13:09 Dose: 1 mg Docusate Sodium (Colace) 100 mg PO BID [facility] Last Admin: 12/04/16 18:02 Dose: 100 mg Enalapril Maleate (Vasotec) 5 mg PO BID [facility] Last Admin: 12/04/16 18:00 Dose: Not Given Fenofibrate (Tricor) 145 mg PO QPM [facility] Last Admin: 12/04/16 18:00 Dose: Not Given Ferrous Sulfate (Feosol) 325 mg PO DAILY [facility] Last Admin: 12/04/16 09:57 Dose: 325 mg Heparin Sodium (Porcine) (Heparin) 5,000 units SC Q8 [facility] Last Admin: 12/05/16 05:07 Dose: Not Given Metoprolol Succinate (Toprol Xl) 50 mg PO DAILY [facility] Last Admin: 12/04/16 09:56 Dose: Not Given Multivitamins/Minerals (Therapeutic-M Tab) 1 tab PO DAILY [facility] Last Admin: 12/04/16 09:55 Dose: 1 tab Pantoprazole Sodium (Protonix Ec Tab) 20 mg PO DAILY [facility] Last Admin: 12/04/16 09:56 Dose: 20 mg Potassium Chloride (Klor-Con 10) 10 meq PO QPM [facility] Last Admin: 12/04/16 18:03 Dose: 10 meq Ranolazine (Ranexa) 1,000 mg PO BID [facility] Last Admin: 12/04/16 18:03 Dose: 1,000 mg Rosuvastatin Calcium (Crestor) 5 mg PO HS [facility] Last Admin: 12/04/16 22:13 Dose: 5 mg Spironolactone (Aldactone) 25 mg PO DAILY [facility] Last Admin: 12/04/16 09:57 Dose: 25 mg Physical Exam - Constitutional Appears: Non-toxic, No Acute Distress - Head Exam Head Exam: ATRAUMATIC, NORMAL INSPECTION, NORMOCEPHALIC - Eye Exam Pupil Exam: NORMAL ACCOMODATION - ENT Exam ENT Exam: Mucous Membranes Moist - Respiratory Exam Respiratory Exam: Clear to Auscultation Bilateral, NORMAL BREATHING PATTERN. absent: Prolonged Expiratory Phase, Rales, Rhonchi, Wheezes - Cardiovascular Exam Cardiovascular Exam: REGULAR RHYTHM, +S1, +S2 Additional comments: pacemaker in place - GI/Abdominal Exam GI & Abdominal Exam: Normal Bowel Sounds, Soft. absent: Distended, Firm, Guarding, Tenderness - Extremities Exam Extremities exam: Positive for: normal capillary refill, pedal pulses present - Neurological Exam Neurological exam: Alert, CN II-XII Intact, Oriented x3 - Psychiatric Exam Psychiatric exam: Normal Affect, Normal Mood - Skin Skin Exam: Dry, Intact, Normal Color, Warm Objective - Vital Signs/Intake and Output Vital Signs (last 24 hours): Temp Pulse Resp BP Pulse Ox 98.6 F 81 18 96/55 L 95 12/05/16 15:22 12/05/16 15:22 12/05/16 15:22 12/05/16 15:22 12/05/16 15:22 - Medications Medications: Current Medications Acetaminophen (Tylenol 325mg Tab) 650 mg PO Q6 PRN PRN Reason: Headache Last Admin: 12/05/16 16:35 Dose: 650 mg Amiodarone HCl (Cordarone) 100 mg PO DAILY [facility] Last Admin: 12/05/16 11:01 Dose: 100 mg Ascorbic Acid (Vitamin C 500 Mg Tab) 500 mg PO DAILY [facility] Last Admin: 12/05/16 11:00 Dose: 500 mg Aspirin (Ecotrin) 81 mg PO QPM [facility] Last Admin: 12/04/16 18:02 Dose: 81 mg Bumetanide (Bumex) 1 mg PO DAILY [facility] Last Admin: 12/05/16 11:00 Dose: 1 mg Docusate Sodium (Colace) 100 mg PO BID [facility] Last Admin: 12/05/16 11:00 Dose: 100 mg Enalapril Maleate (Vasotec) 5 mg PO BID [facility] Last Admin: 12/05/16 11:00 Dose: 5 mg Fenofibrate (Tricor) 145 mg PO QPM [facility] Last Admin: 12/04/16 18:00 Dose: Not Given Ferrous Sulfate (Feosol) 325 mg PO DAILY [facility] Last Admin: 12/05/16 11:02 Dose: 325 mg Heparin Sodium (Porcine) (Heparin) 5,000 units SC Q8 [facility] Last Admin: 12/05/16 14:31 Dose: Not Given Metoprolol Succinate (Toprol Xl) 50 mg PO DAILY [facility] Last Admin: 12/05/16 11:02 Dose: 50 mg Multivitamins/Minerals (Therapeutic-M Tab) 1 tab PO DAILY [facility] Last Admin: 12/05/16 10:59 Dose: 1 tab Pantoprazole Sodium (Protonix Ec Tab) 20 mg PO DAILY [facility] Last Admin: 12/05/16 11:01 Dose: 20 mg Potassium Chloride (Klor-Con 10) 10 meq PO QPM [facility] Last Admin: 12/04/16 18:03 Dose: 10 meq Promethazine HCl/Codeine (Phenergan/Codeine Oral Syrup) 5 ml PO Q4 PRN PRN Reason: Cough Ranolazine (Ranexa) 1,000 mg PO BID [facility] Last Admin: 12/05/16 10:59 Dose: 1,000 mg Rosuvastatin Calcium (Crestor) 5 mg PO HS [facility] Last Admin: 12/04/16 22:13 Dose: 5 mg Spironolactone (Aldactone) 25 mg PO DAILY [facility] Last Admin: 12/05/16 11:00 Dose: 25 mg - Labs Labs: 12/05/16 06:13 12/05/16 06:13 PT 13.3 SECONDS (9.7-12.2) H 12/04/16 01:37 INR 1.2 12/04/16 01:37 APTT 34 SECONDS (21-34) 12/05/16 06:13 Assessment and Plan - Assessment and Plan (Free Text) Assessment: - Assessment and Plan (Free Text) Assessment: Chest pain- Non Cardiac Recent Cath: Normal Coronaries Most likely [place] skeletal HTN Cont home meds: Aldactone 25mg PO Daily Toprol XL 50mg PO Daily Enalapril 5mg PO BID Bumetanide 1mg PO Daily Hypothyroidism TSH 11.3 f/u repeat TSH and Free T4 HLD Cont home med: Fenofibrate 145mg PO QPM Lipid panel WNL Chronic systolic CHF s/p AICD Consult Dr. Bautista for ICD check Headache Tylenol PRN Prophylactic measure Protonix 20mg PO Daily Heparin 5000U SC Q8h SCDs
[2016-12-05] MEDS: Potassium Chloride 10 mEq ER Tab PO SCH (18:10)
[2016-12-05 18:16] VITALS: BP 94/58
--- NOTE | 2016-12-05 21:58 | CP.PCM.DIS ---
Provider - Provider Date of Admission: 12/04/16 02:34 Attending physician: Farhat Russo Jr, MD Primary care physician: Dr. Russo Consults: Cardio- Dr. Lucero Cardio- Dr. Hercules Time Spent in preparation of Discharge (in minutes): 45 Diagnosis - Discharge Diagnosis (1) Chest pain Status: Acute Comment: ROMIs negative x 3. Cleared to go home by Dr. Lucero and Dr. Hercules. Hospital Course - Lab Results Lab Results: Most Recent Lab Values WBC 6.8 K/uL (4.8-10.8) 12/05/16 06:13 RBC 3.94 Mil/uL (4.40-5.90) L 12/05/16 06:13 Hgb 13.1 g/dL (12.0-18.0) 12/05/16 06:13 Hct 37.6 % (35.0-51.0) 12/05/16 06:13 MCV 95.2 fL (80.0-94.0) H D 12/05/16 06:13 MCH 33.2 pg (27.0-31.0) H 12/05/16 06:13 MCHC 34.9 g/dL (33.0-37.0) 12/05/16 06:13 RDW 13.5 % (11.5-14.5) 12/05/16 06:13 Plt Count 149 K/uL (130-400) 12/05/16 06:13 MPV 8.9 fL (7.2-11.7) 12/05/16 06:13 Neut % (Auto) 74.9 % (50.0-75.0) 12/05/16 06:13 Lymph % (Auto) 13.9 % (20.0-40.0) L 12/05/16 06:13 [place] % (Auto) 9.7 % (0.0-10.0) 12/05/16 06:13 Eos % (Auto) 1.0 % (0.0-4.0) 12/05/16 06:13 Baso % (Auto) 0.5 % (0.0-2.0) 12/05/16 06:13 Neut # 5.1 K/uL (1.8-7.0) 12/05/16 06:13 Lymph # 1.0 K/uL (1.0-4.3) 12/05/16 06:13 [place] # 0.7 K/uL (0.0-0.8) 12/05/16 06:13 Eos # 0.1 K/uL (0.0-0.7) 12/05/16 06:13 Baso # 0.0 K/uL (0.0-0.2) 12/05/16 06:13 PT 13.3 SECONDS (9.7-12.2) H 12/04/16 01:37 INR 1.2 12/04/16 01:37 APTT 34 SECONDS (21-34) 12/05/16 06:13 Sodium 139 mmol/L (132-148) 12/05/16 06:13 Potassium 3.4 mmol/L (3.6-5.2) L 12/05/16 06:13 Chloride 100 mmol/L (98-107) 12/05/16 06:13 Carbon Dioxide 25 mmol/L (22-30) 12/05/16 06:13 Anion Gap 17 (10-20) 12/05/16 06:13 BUN 19 mg/dL (9-20) 12/05/16 06:13 Creatinine 1.2 MG/DL (0.8-1.5) 12/05/16 06:13 Est GFR ( Amer) > 60 12/05/16 06:13 Est GFR (Non-Af Amer) > 60 12/05/16 06:13 Random Glucose 105 mg/dL (75-110) 12/05/16 06:13 Calcium 8.4 mg/dl (8.6-10.4) L 12/05/16 06:13 Phosphorus 3.3 mg/dL (2.5-4.5) 12/04/16 16:57 Magnesium 2.0 mg/dL (1.6-2.3) 12/04/16 16:57 Total Bilirubin 0.6 mg/dL (0.2-1.3) 12/05/16 06:13 AST 25 U/L (17-59) 12/05/16 06:13 ALT 24 U/L (21-72) 12/05/16 06:13 Alkaline Phosphatase 34 U/L (38-126) L 12/05/16 06:13 Total Creatine Kinase 61 U/L (55-170) 12/04/16 16:57 CK-MB (Mass) 1.02 ng/mL (0.0-3.38) 12/04/16 16:57 Troponin I 0.0510 ng/mL (0.00-0.120) 12/04/16 01:37 Troponin I, Quant 0.0300 ng/mL (0.00-0.120) 12/04/16 16:57 NT-Pro-B Natriuret Pep 2000 pg/mL (0-900) H 12/04/16 01:37 Total Protein 6.9 g/dL (6.3-8.3) 12/05/16 06:13 Albumin 3.9 g/dL (3.5-5.0) 12/05/16 06:13 Globulin 3.0 gm/dL (2.2-3.9) 12/05/16 06:13 Albumin/Globulin Ratio 1.3 (1.0-2.1) 12/05/16 06:13 Triglycerides 81 mg/dL (0-149) D 12/04/16 06:00 Cholesterol 90 mg/dL (0-199) 12/04/16 06:00 LDL Cholesterol Direct 32 mg/dL (0-129) 12/04/16 06:00 HDL Cholesterol 35 mg/dL (30-70) 12/04/16 06:00 Free T4 1.29 ng/dL (0.78-2.19) 12/05/16 06:13 TSH 3rd Generation 5.65 mIU/L (0.46-4.68) H 12/05/16 06:13 Urine Color Straw (YELLOW) 12/04/16 03:58 Urine Clarity Clear (Clear) 12/04/16 03:58 Urine pH 6.0 (5.0-8.0) 12/04/16 03:58 Ur Specific [place] 1.004 (1.003-1.030) 12/04/16 03:58 Urine Protein Negative mg/dL (NEGATIVE) 12/04/16 03:58 Urine Glucose (UA) Normal mg/dL (Normal) 12/04/16 03:58 Urine Ketones Negative mg/dL (NEGATIVE) 12/04/16 03:58 Urine Blood Negative (NEGATIVE) 12/04/16 03:58 Urine Nitrate Negative (NEGATIVE) 12/04/16 03:58 Urine Bilirubin Negative (NEGATIVE) 12/04/16 03:58 Urine Urobilinogen Normal mg/dL (0.2-1.0) 12/04/16 03:58 Ur Leukocyte Esterase Neg [place]/uL (Negative) 12/04/16 03:58 Urine WBC (Auto) 1 /hpf (0-5) 12/04/16 03:58 Ur Squamous Epith Cells < 1 /hpf (0-5) 12/04/16 03:58 - Hospital Course Hospital Course: As per admission documentation: 66M w/PMH sig for HTN, aortic valve disease s/p surgery admitted for chest pain x 1 day. Pain is constant, located in left chest with varying intensity since onset, severe, non radiating. Admits to non productive cough, occasional headaches. Denies N/V/F/C, SOB, abdominal pain, congestion, sore throat, back pain, blurry vision, constipation, diarrhea, dysuria, urinary frequency. Patient was admitted to the hospital for ACS workup. ROMIs negative x 3. Consulted Dr. Lucero, who evaluated and said it was likely musculoskeletal. Patients chest pain resolved. Dr. Hercules was consulted, pacemaker was interrogated, deemed fully functional with no v tach detected. Cleared for discharge. Followup with PMD in 1 week. Discharge Exam - Head Exam Head Exam: ATRAUMATIC, NORMAL INSPECTION, NORMOCEPHALIC Discharge Plan - Follow Up Plan Condition: FAIR Disposition: HOME/ ROUTINE Instructions: Heart Failure (DC), Atrial Fibrillation (DC), Chest Pain (DC), Pacemaker (DC) Additional Instructions: Please discharge patient home, as per Dr. Russo. Patient is to continue taking home medications as instructed. Patient is to followup with Dr. Russo in 1 week. If symptoms worsen, please return to the hospital for further evaluation and treatment.
--- NOTE | 2016-12-05 22:12 | CARD ---
APPROVED REPORT EKG Measurement Heart [id number] <Conclusion> AV sequential or dual chamber electronic pacemaker
--- NOTE | 2016-12-05 23:33 | CARD ---
APPROVED REPORT EKG Measurement Heart [id number] <Conclusion> Atrial-sensed ventricular-paced rhythm with occasional premature ventricular complexes Abnormal ECG
== END 2016-12-05 18:30 | disposition home or self-care (01) ==
LOC: C.ER 23:14 → C.9E 12-04 02:34 → C.6T 12-04 03:27
PROVIDERS: ADMIT Internal Medicine; ATTEND Internal Medicine
DX: R07.89 Other chest pain (principal); I11.0 Hypertensive heart disease with heart failure; I50.22 Chronic systolic (congestive) heart failure; R51 Headache; E03.9 Hypothyroidism, unspecified; R79.89 Other specified abnormal findings of blood chemistry; Z95.2 Presence of prosthetic heart valve; Z95.810 Presence of automatic (implantable) cardiac defibrillator; Z87.891 Personal history of nicotine dependence; E78.5 Hyperlipidemia, unspecified; K59.00 Constipation, unspecified; I48.91 Unspecified atrial fibrillation
CPT/HCPCS: 36415; 71010; 80053; 80061; 81001; 83036; 83735; 83880; 84100; 84439; 84443; 84484; 85025; 85610; 85730; 93005; 96374; 99285; G0378; J1644; J1940

== ENCOUNTER 2016-12-27 11:26 | Inpatient (IN) | payer MEDICARE, OTHER ==
[2016-12-27 11:26] VITALS: PULSE 127; BMI 25.9
[2016-12-27 13:17] LABS: BASO # 0.1 K/uL (0.0-0.2); BASO % 0.9 % (0.0-2.0); EOS # 0.1 K/uL (0.0-0.7); EOS % 0.9 % (0.0-4.0); HEMATOCRIT 39.6 % (35.0-51.0); LYMPH # 1.4 K/uL (1.0-4.3); LYMPH % 23.9 % (20.0-40.0); MEAN CORPUSCULAR HEMOGLOBIN 32.2 pg (27.0-31.0); MEAN CORPUSCULAR HGB CONC 32.7 g/dL (33.0-37.0); MEAN PLATELET VOLUME 9.5 fL (7.2-11.7); MONO # 0.5 K/uL (0.0-0.8); MONO % 9.1 % (0.0-10.0); NRBC % 0.1 % (0.0-2.0); RED CELL DISTRIBUTION WIDTH 13.4 % (11.5-14.5); WHITE BLOOD COUNT 5.9 K/uL (4.8-10.8)
[2016-12-27 13:19] LABS: MEAN CELL VOLUME 98.4 fL (80.0-94.0)
[2016-12-27 13:34] LABS: CHLORIDE 102 mmol/L (98-107)
[2016-12-27 13:35] LABS: POTASSIUM 4.3 mmol/L (3.6-5.2); SODIUM 140 mmol/L (132-148)
[2016-12-27 13:37] LABS: ALB/GLOB RATIO 1.6 (1.0-2.1); ALKALINE PHOSPHATASE 42 U/L (38-126); ALT/SGPT 13 U/L (21-72); AST/SGOT 26 U/L (17-59); BILIRUBIN,TOTAL 0.4 mg/dL (0.2-1.3); BLOOD UREA NITROGEN 20 mg/dL (9-20); CARBON DIOXIDE 25 mmol/L (22-30); GFR AFRICAN-AMERICAN > 60; GLUCOSE,RANDOM 88 mg/dL (75-110); TOTAL PROTEIN 6.8 g/dL (6.3-8.3)
[2016-12-27 13:38] LABS: CALCIUM 8.7 mg/dl (8.6-10.4)
--- NOTE | 2016-12-27 14:00 | RAD ---
PROCEDURE: CHEST RADIOGRAPH, 1 VIEW HISTORY: Shortness of breath COMPARISON: None available. FINDINGS: LUNGS: Mild venous congestion. Left basilar airspace opacity with small left pleural effusion. PLEURA: As above. CARDIOVASCULAR: Cardiomegaly. Left-sided pacemaker. OSSEOUS STRUCTURES: No significant abnormalities. VISUALIZED UPPER ABDOMEN: Normal. OTHER FINDINGS: None. IMPRESSION: Mild venous congestion. Left basilar airspace opacity with small left pleural effusion.
[2016-12-27] MEDS ORDERED: Moxifloxacin IV 400mg/250ml NS 250 ML IV ONE (14:46)
[2016-12-27] MEDS ORDERED: Moxifloxacin IV 400mg/250ml NS 250 ML IVPB ONE (15:20)
--- NOTE | 2016-12-27 15:22 | C.PDOC ---
History Of Present Illness 66-year-old male, PMHx includes Atrial Fibrillation (s/p pacemaker), CABG, CAD, CHF, Hypertension, Hypercholesterolemia, presents to ER for midsternal chest pain and epigastric pain that started today. (+) cough. No radiation. Not aggravated by anything including deep breaths or movement. Also notes low blood pressure and high heart rate for the last couple days. Patient states he checks his BP and HR regularly. Patient denies nausea/vomiting, diarrhea, fevers/chills, shortness of breath, change in sensation, n/v. No other complaints at this time. PMD Farhat Russo MD. Cardiologists Dr Nic Gonzalez Time Seen by Provider: 12/27/16 12:41 Chief Complaint (Nursing): Chest Pain History Per: Patient History/Exam Limitations: no limitations Onset/Duration Of Symptoms: Hrs Current Symptoms Are (Timing): Still Present Past Medical History Reviewed: Historical Data, Nursing Documentation, Vital Signs Vital Signs: Last Vital Signs Temp 97.5 F L 12/27/16 17:04 Pulse 84 12/27/16 17:04 Resp 20 12/27/16 17:04 BP 102/70 12/27/16 17:04 Pulse Ox 99 12/27/16 18:42 - Medical History PMH: Anxiety, Atrial Fibrillation, CAD, Cardia Arrhythmia (pacemaker, last changed in 2012, AICD fired in ED after run of [employer]), CHF, HTN, Hypercholesterolemia, Peripheral Edema, Pneumonia (LONG AGO), TIA (MAYBE NOT SURE) Denies: Chronic Kidney Disease Surgical History: Pacemaker (last changed in 11/21/15) - [employer] Procedures AUTOMATIC IMPLANT CARDIOVERTER/DEFIBRILLATOR (AICD) CHECK (06/15/13) CORONAR ARTERIOGR-2 CATH (07/18/13) INFLUENZA VACCINATION (07/04/14) LEFT HEART CARDIAC CATH (07/18/13) LT HEART ANGIOCARDIOGRAM (07/18/13) TAOISM OF CARDIAC RHYTHM, SINGLE (12/10/15) Family History: States: Unknown Family Hx - Social History Hx Tobacco Use: No Hx Alcohol Use: No Hx Substance Use: No - Immunization History Hx Tetanus Toxoid Vaccination: No Hx Influenza Vaccination: Yes (07/2016) Hx Pneumococcal Vaccination: Yes (2012) Review Of Systems Except As Marked, All Systems Reviewed And Found Negative. Constitutional: Negative for: Fever, Chills Cardiovascular: Negative for: Palpitations Respiratory: Negative for: Shortness of Breath Gastrointestinal: Negative for: Nausea, Vomiting Musculoskeletal: Negative for: Back Pain Skin: Negative for: Rash Neurological: Negative for: Weakness, Numbness, Headache, Dizziness Physical Exam - Physical Exam Appears: Non-toxic, No Acute Distress, Other (anxious) Skin: Warm, Dry, Rash Head: Atraumatic, Normacephalic Eye(s): bilateral: Normal Inspection, EOMI Nose: Normal Oral Mucosa: Moist Lips: Normal Appearing Neck: Normal ROM Chest: Symmetrical Cardiovascular: Rhythm Regular Respiratory: Normal Breath Sounds, No Accessory Muscle Use Gastrointestinal/Abdominal: Soft, No Tenderness Back: No CVA Tenderness Extremity: Normal ROM Neurological/Psych: Oriented x3, Normal Speech ED Course And Treatment - Laboratory Results Result Diagrams: 12/27/16 13:12 12/27/16 13:12 ECG: Interpreted By Me, Viewed By Me ECG Rhythm: Sinus Rhythm, R BBB Interpretation Of ECG: +Changes from previous EKG on 12/05/16 Rate From EC O2 Sat by Pulse Oximetry: 99 - Radiology CXR: Viewed By Me, Read By Radiologist CXR Interpretation: Yes: Other (Mild venous congestion. Left basilar airspace opacity with small left pleural effusion.) Progress Note: Plan: Labs. Chest X-Ray reviewed: blood cultures and antibiotics ordered. Patient will be admitted to Dr Perez service Disposition - Disposition Disposition: HOSPITALIZED Disposition Time: 17:00 Condition: STABLE - Clinical Impression Clinical Impression: Chest pain, Elevated brain natriuretic peptide (BNP) level, Hypotension, Pneumonia - Scribe Statement The provider has reviewed the documentation as recorded by the Caitlyn Goodwin
--- NOTE | 2016-12-27 16:49 | CP.PCM.HP ---
History of Present Illness - History of Present Illness History of Present Illness: CC: Chest pain and SOB 66 year old male w/ PMH of HTN, aortic valve disease s/p surgery admitted for shortness of breath and chest pain. Patient stated that the pain started earleir today when he was on his way to the hospital to fill out [employer] papers while the SOB had present present for almost a week. He also had been complaining of low blood pressure and palpitations for about a week. Patient had experienced these symptoms before. He was recently hospitalized for chest pain in November. He rated the pain 6/10 in severity. He described the chest pain as an intermittent heaviness located in left chest without radiation. Nothing alleviate or exacerbated the pain. He describes shortness of breath worse with laying flat. Patient recently had ECHO done. Patient sleeps with 2 pillows. Patient reported to being able to walk 20 blocks before getting tired. Admitted to cough, fatigue, dizziness, orthopnea and abdominal pain. Denied numbness and tingling of the jaw, leg pain, fever/chills , abd pain, nausea, vomiting, diarrhea, incontinence. PMD: Dr. Russo PMH: HTN, aortic valve disease, CHF, CAD Meds: spironolactone 25mg QD, Ranexa 1000mg BID, KTab QPM, Omeprazole 20mg QD, Toprol XL 50mg QD, Enalapril 5mg BID, Lipitor 10mg QPM, Amiodarone 100mg QD, Bumetanide 1mg QD Allergies: penicillin, polyethylene glycol, sodium bicarbonate PSH: prosthetic aortic valve, pacemaker, CABG FH: noncontributory Social: Former light smoke quit 24+ years ago, denies EtOH, illict drug use. Unemployed and lives alone Present on Admission - Present on Admission Any Indicators Present on Admission: No History of DVT/PE: No History of Uncontrolled Diabetes: No Urinary Catheter: No Decubitus Ulcer Present: No Review of Systems - Review of Systems All systems: reviewed and no additional remarkable complaints except (as per HPI ) Past Patient History - Infectious Disease Hx of Infectious Diseases: None ( ) - Tetanus Immunizations Tetanus Immunization: Unknown - Past Medical History & Family History Past Medical History?: Yes - Past Social History Smoking Status: Former Smoker - CARDIAC Hx Atrial Fibrillation: Yes Hx Cardia Arrhythmia: Yes (pacemaker, last changed in 2012, AICD fired in ED after run of v-tach) Hx Congestive Heart Failure: Yes Hx Hypercholesterolemia: Yes Hx Hypertension: Yes Hx Pacemaker: Yes (last changed in 11/21/15) Hx Peripheral Edema: Yes - PULMONARY Hx Pneumonia: Yes (LONG AGO) - NEUROLOGICAL Hx Transient Ischemic Attacks (TIA): Yes (MAYBE NOT SURE) - HEENT Other/Comment: wears glasses for reading - RENAL Hx Chronic Kidney Disease: No - ENDOCRINE/METABOLIC Hx Endocrine Disorders: No - HEMATOLOGICAL/ONCOLOGICAL Hx Blood Disorders: No - INTEGUMENTARY Hx Dermatological Problems: No - MUSCULOSKELETAL/RHEUMATOLOGICAL Hx Falls: No - GASTROINTESTINAL Hx Gastrointestinal Disorders: No - GENITOURINARY/GYNECOLOGICAL Hx Genitourinary Disorders: No - PSYCHIATRIC Hx Anxiety: Yes Hx Substance Use: No - SURGICAL HISTORY Hx Surgeries: Yes Hx Cardiac Catheterization: Yes (last done in December 2014) Hx Open Heart Surgery: Yes (1996, s/p prosthetic aortic valve placement) Hx Valve Replacement: Yes Other/Comment: ICD 21-NOV-2015 - ANESTHESIA Hx Anesthesia: Yes Hx Anesthesia Reactions: No Hx Malignant Hyperthermia: No Meds Allergies/Adverse Reactions: Allergies Allergy/AdvReac Type Severity Reaction Status Date / Time Penicillins Allergy Verified 12/27/16 11:33 polyethylene glycol Allergy Verified 12/27/16 11:33 sodium bicarbonate Allergy Verified 12/27/16 11:33 Physical Exam - Constitutional Appears: No Acute Distress - Head Exam Head Exam: ATRAUMATIC, NORMOCEPHALIC - Eye Exam Eye Exam: EOMI, Normal appearance Pupil Exam: PERRL - ENT Exam ENT Exam: Mucous Membranes Moist, Normal Exam - Neck Exam Neck exam: Positive for: Normal Inspection - Respiratory Exam Respiratory Exam: Clear to Auscultation Bilateral, NORMAL BREATHING PATTERN. absent: Accessory Muscle Use, Chest Wall Tenderness, Respiratory Distress - Cardiovascular Exam Cardiovascular Exam: REGULAR RHYTHM, +S1, +S2 - GI/Abdominal Exam GI & Abdominal Exam: Normal Bowel Sounds, Soft. absent: Distended, Firm, Guarding, Hernia, Rebound, Tenderness - Extremities Exam Extremities exam: Positive for: normal capillary refill, pedal pulses present - Back Exam Back exam: absent: CVA tenderness (L), CVA tenderness (R) - Neurological Exam Neurological exam: Alert, CN II-XII Intact, Oriented x3 - Psychiatric Exam Psychiatric exam: Normal Affect, Normal Mood - Skin Skin Exam: Dry, Intact, Normal Color, Warm Results - Vital Signs Recent Vital Signs: Last Vital Signs Temp 97.7 F 12/27/16 11:33 Pulse 86 12/27/16 16:25 Resp 19 12/27/16 16:25 BP 94/61 L 12/27/16 16:25 Pulse Ox 97 12/27/16 16:25 - Labs Result Diagrams: 12/27/16 13:12 12/27/16 13:12 Assessment & Plan - Assessment and Plan (Free Text) Plan: 1. Chest Pain Ranexa 1,000 mg PO BID ASA 81 mg PO daily CXR: shows mild venous congestion and left basilar opacity ECHO from 05/2016: EF25-30% inital troponin below baselin, as per Dr. Russo no more needed f/u daily labs 2. Dyspnea Pulm consult, Dr. Carey, help appreciated ECHO from 05/2016: EF25-30% CXR: shows mild venous congestion and left basilar opacity Avelox give in ED Bumetanide 1 mg PO daily 3. HTN HOLD home anti-hypertensives 4. CHF Amiodarone 100 mg PO daily Ranexa 1,000 mg PO BID BNP 2940 CXR: shows mild venous congestion and left basilar opacity ECHO from 05/2016: EF25-30% inital troponin below baselin, as per Dr. Russo no more needed f/u daily labs 5. CAD ASA 81 mg PO daily Crestor 10 mg PO HS Tricor 1 mg PO HS 6. Prophylactic Measures Protonix 40 mg pO daily Lovenox 40 mg SC daily HHD Colace 100 mg PO BID
[2016-12-27] MEDS: Ranolazine 500 mg Extended Release Tablets PO SCH (18:39)
[2016-12-27 22:54] LABS: RBC URINE < 1 /hpf (0-3); URINE BILIRUBIN NEGATIVE (NEGATIVE); URINE BLOOD NEGATIVE (NEGATIVE); URINE COLOR Yellow (YELLOW); URINE GLUCOSE (UA) NORMAL (Normal); URINE KETONE NEGATIVE (NEGATIVE); URINE LEUKOCYTE ESTERASE NEG Leu/uL (Negative); URINE PROTEIN NEGATIVE (NEGATIVE); URINE UROBILINOGEN NORMAL mg/dL (0.2-1.0)
[2016-12-28 06:20] LABS: BASO % 0.7 % (0.0-2.0); EOS # 0.1 K/uL (0.0-0.7); EOS % 1.7 % (0.0-4.0); HEMATOCRIT 37.1 % (35.0-51.0); LYMPH # 1.4 K/uL (1.0-4.3); LYMPH % 24.5 % (20.0-40.0); MEAN CELL VOLUME 97.4 fL (80.0-94.0); MEAN CORPUSCULAR HEMOGLOBIN 32.9 pg (27.0-31.0); MEAN CORPUSCULAR HGB CONC 33.7 g/dL (33.0-37.0); MEAN PLATELET VOLUME 8.8 fL (7.2-11.7); MONO # 0.5 K/uL (0.0-0.8); MONO % 8.6 % (0.0-10.0); RED CELL DISTRIBUTION WIDTH 13.3 % (11.5-14.5); WHITE BLOOD COUNT 5.8 K/uL (4.8-10.8)
[2016-12-28 06:28] LABS: INR 1.3
[2016-12-28 06:31] LABS: CHLORIDE 101 mmol/L (98-107); POTASSIUM 3.8 mmol/L (3.6-5.2); SODIUM 142 mmol/L (132-148)
[2016-12-28 06:33] LABS: ALB/GLOB RATIO 1.7 (1.0-2.1); ALKALINE PHOSPHATASE 33 U/L (38-126); AST/SGOT 17 U/L (17-59); BILIRUBIN,TOTAL 0.7 mg/dL (0.2-1.3); BLOOD UREA NITROGEN 21 mg/dL (9-20); CARBON DIOXIDE 24 mmol/L (22-30); CHOLESTEROL 87 mg/dL (0-199); GFR AFRICAN-AMERICAN > 60; TOTAL PROTEIN 6.1 g/dL (6.3-8.3)
[2016-12-28 06:34] LABS: ALT/SGPT 10 U/L (21-72); CALCIUM 7.9 mg/dl (8.6-10.4); GLUCOSE,RANDOM 90 mg/dL (75-110)
[2016-12-28] MEDS: Ranolazine 500 mg Extended Release Tablets PO SCH ×2 (10:00→17:23)
[2016-12-28] MEDS ORDERED: Enoxaparin 40 mg Syringe SC SCH (10:00)
[2016-12-28] MEDS: Pantoprazole 40 mg EC Tab PO SCH (10:00)
[2016-12-28] MEDS: Multivitamin With Minerals Tab PO SCH (10:01)
--- NOTE | 2016-12-28 15:56 | CP.PCM.PN ---
<Farhan Vallecillo - Last Filed: 12/28/16 15:53> Subjective - Date & Time of Evaluation Date of Evaluation: 12/28/16 Time of Evaluation: 07:47 - Subjective Subjective: Pt seen and examined. Pt reports that he is feeling better today. Pt reports that his shortness of breath has resolved. Pt denies fever, chills, chest pain, cough, nausea, and vomiting. Objective - Vital Signs/Intake and Output Vital Signs (last 24 hours): Temp Pulse Resp BP Pulse Ox 98.1 F 61 18 110/67 97 12/28/16 07:15 12/28/16 07:15 12/28/16 07:15 12/28/16 07:15 12/28/16 07:15 Intake and Output: 12/28/16 12/28/16 06:59 18:59 Intake Total 200 800 Output Total 600 Balance -400 800 - Medications Medications: Current Medications Amiodarone HCl (Cordarone) 100 mg PO DAILY [facility] Last Admin: 12/28/16 09:58 Dose: 100 mg Ascorbic Acid (Vitamin C 500 Mg Tab) 500 mg PO DAILY [facility] Aspirin (Aspirin Chewable) 81 mg PO DAILY [facility] Last Admin: 12/28/16 12:58 Dose: 81 mg Bumetanide (Bumex) 1 mg PO DAILY [facility] Last Admin: 12/28/16 09:57 Dose: 1 mg Docusate Sodium (Colace) 100 mg PO BID [facility] Last Admin: 12/28/16 09:58 Dose: 100 mg Enoxaparin Sodium (Lovenox) 40 mg SC DAILY [facility] Last Admin: 12/28/16 09:59 Dose: 40 mg Fenofibrate (Tricor) 145 mg PO QPM [facility] Last Admin: 12/27/16 18:39 Dose: 145 mg Ferrous Sulfate (Feosol) 325 mg PO DAILY [facility] Last Admin: 12/28/16 09:58 Dose: 325 mg Multivitamins/Minerals (Therapeutic-M Tab) 1 tab PO DAILY [facility] Last Admin: 12/28/16 10:01 Dose: 1 tab Pantoprazole Sodium (Protonix Ec Tab) 40 mg PO DAILY [facility] Last Admin: 12/28/16 10:00 Dose: 40 mg Ranolazine (Ranexa) 1,000 mg PO BID [facility] Last Admin: 12/28/16 10:00 Dose: 1,000 mg Rosuvastatin Calcium (Crestor) 10 mg PO HS [facility] Last Admin: 12/27/16 21:19 Dose: 10 mg - Labs Labs: 12/28/16 06:07 12/28/16 06:07 PT 14.6 SECONDS (9.7-12.2) H 12/28/16 06:07 INR 1.3 12/28/16 06:07 APTT 33 SECONDS (21-34) 12/28/16 06:07 - Constitutional Appears: No Acute Distress - Head Exam Head Exam: ATRAUMATIC, NORMOCEPHALIC - Eye Exam Eye Exam: EOMI, PERRL - ENT Exam ENT Exam: Mucous Membranes Moist. absent: Mucous Membranes Dry - Neck Exam Neck Exam: Full ROM. absent: Lymphadenopathy - Respiratory Exam Respiratory Exam: Decreased Breath Sounds. absent: Rales, Rhonchi - Cardiovascular Exam Cardiovascular Exam: Gallop, +S1, +S2 - GI/Abdominal Exam GI & Abdominal Exam: Soft. absent: Tenderness - Extremities Exam Extremities Exam: Full ROM. absent: Pedal Edema - Neurological Exam Neurological Exam: Alert, Awake, Oriented x3 - Psychiatric Exam Psychiatric exam: Normal Affect, Normal Mood - Skin Skin Exam: Normal Color, Warm Assessment and Plan - Assessment and Plan (Free Text) Assessment: Angina: Pulm consult, Dr. Carey, help appreciated ECHO from 05/2016: EF 25-30% CXR: shows mild venous congestion and left basilar opacity Troponin x 1 0.0230 Ranexa 1000 mg po tid Cardiology, Dr. Lucero consulted, helpappreciated. CHF Exacerbation: Amiodarone 100 mg PO daily Ranexa 1,000 mg PO BID BNP 2940 CXR: shows mild venous congestion and left basilar opacity Echocardiogramfrom 05/2016: EF 25-30% Cardiology, Dr. Lucero, consulted. Help appreciated. Coronary Artery Disease: ASA 81 mg PO daily Crestor 10 mg PO HS Tricor 1 mg PO HS HTN: Home antihypertensive medications held due to hypotension Prophylactic Measures: GI: Protonix 40 mg po daily DVT: Heparin 5000 units sc q8h Colace 100 mg PO BID for constipation <Farhat Russo Jr. - Last Filed: 12/31/16 16:45> Objective - Vital Signs/Intake and Output Vital Signs (last 24 hours): Temp Pulse Resp BP Pulse Ox 97.4 F L 62 17 109/74 98 12/30/16 07:20 12/30/16 07:30 12/30/16 07:20 12/30/16 07:20 12/30/16 07:20 - Labs Labs: 12/30/16 06:05 12/30/16 06:05 PT 14.6 SECONDS (9.7-12.2) H 12/28/16 06:07 INR 1.3 12/28/16 06:07 APTT 33 SECONDS (21-34) 12/28/16 06:07 Attending/Attestation - Attestation I have personally seen and examined this patient.: Yes I have fully participated in the care of the patient.: Yes I have reviewed all pertinent clinical information, including history, physical exam and plan: Yes Notes (Text): 12/31/16 16:45 Patient seen and examined. Reviewed resident note and agree with plan of care and findings
--- NOTE | 2016-12-28 16:20 | CP.PCM.CON ---
History of Present Illness - History of Present Illness History of Present Illness: 66 y/o male with pmhx of HTN, aortic valve replacement, CHF, and CAD presented to hospital for hypotension detected when he was going to the [facility] to submit application. He was found to have shortness of breath and chest pain on presentation to the ED. He was recently here in November for chest heaviness which was evaluated and he was discharged home. Pulmonology was consulted for shortness of breath and bibasilar opacity. At the time of examination, he does not have shortness of breath and denies having any breathing issues. Furthermore he denies he ever had trouble breathing yesterday. He denies having COPD, asthma, or difficulty breathing. Pmhx: HTN, Aortic valve disease, CAD, CHF Pshx: CABG, aortic valve replacement (1994), and pacemaker insertion. Famhx: no pertinent family hx SShx: Quit smoking 24 years ago, denies alcohol, adnd drugs. Lives alone. PMD: Establishing at [facility], sees Dr. Russo currently. Review of Systems - EENT Eyes: Change in Vision Nose/Mouth/Throat: Nasal Congestion, Nasal Discharge - Cardiovascular Cardiovascular: absent: Chest Pain, Chest Pain at Rest, Dyspnea - Respiratory Respiratory: absent: Dyspnea, Dyspnea on Exertion, Wheezing, Snoring, Stridor, Pain on Inspiration - Gastrointestinal Gastrointestinal: absent: Abdominal Pain - Genitourinary Genitourinary: absent: Dysuria - Integumentary Integumentary: absent: Rash, Skin Ulcer - Neurological Neurological: absent: Abnormal Hearing, Dizziness - Psychiatric Psychiatric: absent: Anxiety - Endocrine Endocrine: absent: Heat Intolorance, Palpitations - Hematologic/Lymphatic Hematologic: absent: Easy Bleeding, Easy Bruising Past Patient History - Infectious Disease Hx of Infectious Diseases: None ( ) - Tetanus Immunizations Tetanus Immunization: Unknown - Past Medical History & Family History Past Medical History?: Yes - Past Social History Smoking Status: Former Smoker - CARDIAC Hx Atrial Fibrillation: Yes Hx Cardia Arrhythmia: Yes (pacemaker, last changed in 2012, AICD fired in ED after run of [employer]) Hx Congestive Heart Failure: Yes Hx Hypercholesterolemia: Yes Hx Hypertension: Yes Hx Pacemaker: Yes (last changed in 11/21/15) Hx Peripheral Edema: Yes - PULMONARY Hx Pneumonia: Yes (LONG AGO) - NEUROLOGICAL Hx Transient Ischemic Attacks (TIA): Yes (MAYBE NOT SURE) - HEENT Hx HEENT Problems: Yes Other/Comment: wears glasses for reading - RENAL Hx Chronic Kidney Disease: No - ENDOCRINE/METABOLIC Hx Endocrine Disorders: No - HEMATOLOGICAL/ONCOLOGICAL Hx Blood Disorders: No - INTEGUMENTARY Hx Dermatological Problems: No - MUSCULOSKELETAL/RHEUMATOLOGICAL Hx Musculoskeletal Disorders: Yes Hx Falls: No Hx Osteoarthritis: Yes - GASTROINTESTINAL Hx Gastrointestinal Disorders: Yes Hx Ulcer: Yes - GENITOURINARY/GYNECOLOGICAL Hx Genitourinary Disorders: No - PSYCHIATRIC Hx Anxiety: Yes Hx Substance Use: No - SURGICAL HISTORY Hx Surgeries: Yes Hx Cardiac Catheterization: Yes (last done in December 2014) Hx Open Heart Surgery: Yes (1996, s/p prosthetic aortic valve placement) Hx Valve Replacement: Yes Other/Comment: ICD 21-NOV-2015 - ANESTHESIA Hx Anesthesia: Yes Hx Anesthesia Reactions: No Hx Malignant Hyperthermia: No Has any member of the family had a problem w/ anesthesia?: No Meds Allergies/Adverse Reactions: Allergies Allergy/AdvReac Type Severity Reaction Status Date / Time Penicillins Allergy Verified 12/27/16 11:33 polyethylene glycol Allergy Verified 12/27/16 11:33 sodium bicarbonate Allergy Verified 12/27/16 11:33 - Medications Medications: Current Medications Amiodarone HCl (Cordarone) 100 mg PO DAILY [facility] Last Admin: 12/28/16 09:58 Dose: 100 mg Ascorbic Acid (Vitamin C 500 Mg Tab) 500 mg PO DAILY [facility] Aspirin (Aspirin Chewable) 81 mg PO DAILY [facility] Last Admin: 12/28/16 12:58 Dose: 81 mg Bumetanide (Bumex) 1 mg PO DAILY [facility] Last Admin: 12/28/16 09:57 Dose: 1 mg Docusate Sodium (Colace) 100 mg PO BID [facility] Last Admin: 12/28/16 09:58 Dose: 100 mg Fenofibrate (Tricor) 145 mg PO QPM [facility] Last Admin: 12/27/16 18:39 Dose: 145 mg Ferrous Sulfate (Feosol) 325 mg PO DAILY [facility] Last Admin: 12/28/16 09:58 Dose: 325 mg Heparin Sodium (Porcine) (Heparin) 5,000 units SC Q8 [facility] Multivitamins/Minerals (Therapeutic-M Tab) 1 tab PO DAILY [facility] Last Admin: 12/28/16 10:01 Dose: 1 tab Pantoprazole Sodium (Protonix Ec Tab) 40 mg PO DAILY [facility] Last Admin: 12/28/16 10:00 Dose: 40 mg Ranolazine (Ranexa) 1,000 mg PO BID [facility] Last Admin: 12/28/16 10:00 Dose: 1,000 mg Rosuvastatin Calcium (Crestor) 10 mg PO HS [facility] Last Admin: 12/27/16 21:19 Dose: 10 mg Physical Exam - Head Exam Head Exam: NORMAL INSPECTION, NORMOCEPHALIC - Eye Exam Eye Exam: Normal appearance, PERRL Pupil Exam: NORMAL ACCOMODATION - ENT Exam ENT Exam: Mucous Membranes Moist - Neck Exam Neck exam: Positive for: Normal Inspection - Respiratory Exam Respiratory Exam: Clear to Auscultation Bilateral, NORMAL BREATHING PATTERN. absent: Decreased Breath Sounds, Rales, Rhonchi, Wheezes - Cardiovascular Exam Cardiovascular Exam: REGULAR RHYTHM, +S1, +S2 - GI/Abdominal Exam GI & Abdominal Exam: Normal Bowel Sounds, Soft. absent: Tenderness - Extremities Exam Extremities exam: Positive for: normal inspection. Negative for: joint swelling , pedal edema Additional comments: Diminished left radial pulse relative to right - Back Exam Back exam: NORMAL INSPECTION - Neurological Exam Neurological exam: Alert, Oriented x3 - Psychiatric Exam Psychiatric exam: Normal Affect, Normal Mood - Skin Skin Exam: Intact, Normal Color, Warm Results - Vital Signs Recent Vital Signs: Last Vital Signs Temp 98.1 F 12/28/16 07:15 Pulse 61 12/28/16 07:15 Resp 18 12/28/16 07:15 BP 110/67 12/28/16 07:15 Pulse Ox 97 12/28/16 07:15 - Labs Result Diagrams: 12/28/16 06:07 12/28/16 06:07 Labs: Laboratory Results - last 24 hr 12/27/16 12/27/16 12/28/16 21:15 22:33 06:07 WBC 5.8 RBC 3.81 L Hgb 12.5 Hct 37.1 MCV 97.4 H MCH 32.9 H MCHC 33.7 RDW 13.3 Plt Count 183 MPV 8.8 Neut % (Auto) 64.5 Lymph % (Auto) 24.5 [place] % (Auto) 8.6 Eos % (Auto) 1.7 Baso % (Auto) 0.7 Neut # 3.8 Lymph # 1.4 [place] # 0.5 Eos # 0.1 Baso # 0.0 PT 14.6 H INR 1.3 APTT 33 Sodium 142 Potassium 3.8 Chloride 101 Carbon Dioxide 24 Anion Gap 21 H BUN 21 H Creatinine 1.1 Est GFR ( Amer) > 60 Est GFR (Non-Af Amer) > 60 POC Glucose (mg/dL) 110 Random Glucose 90 Calcium 7.9 L Total Bilirubin 0.7 AST 17 D ALT 10 L D Alkaline Phosphatase 33 L D Total Protein 6.1 L Albumin 3.8 Globulin 2.2 Albumin/Globulin Ratio 1.7 Triglycerides 71 Cholesterol 87 LDL Cholesterol Direct 30 HDL Cholesterol 36 Urine Color Yellow Urine Clarity Clear Urine pH 6.0 Ur Specific [place] 1.008 Urine Protein Negative Urine Glucose (UA) Normal Urine Ketones Negative Urine Blood Negative Urine Nitrate Negative Urine Bilirubin Negative Urine Urobilinogen Normal Ur Leukocyte Esterase Neg Urine RBC (Auto) < 1 12/28/16 12/28/16 06:09 11:27 WBC RBC Hgb Hct MCV MCH MCHC RDW Plt Count MPV Neut % (Auto) Lymph % (Auto) [place] % (Auto) Eos % (Auto) Baso % (Auto) Neut # Lymph # [place] # Eos # Baso # PT INR APTT Sodium Potassium Chloride Carbon Dioxide Anion Gap BUN Creatinine Est GFR ( Amer) Est GFR (Non-Af Amer) POC Glucose (mg/dL) 89 88 Random Glucose Calcium Total Bilirubin AST ALT Alkaline Phosphatase Total Protein Albumin Globulin Albumin/Globulin Ratio Triglycerides Cholesterol LDL Cholesterol Direct HDL Cholesterol Urine Color Urine Clarity Urine pH Ur Specific [place] Urine Protein Urine Glucose (UA) Urine Ketones Urine Blood Urine Nitrate Urine Bilirubin Urine Urobilinogen Ur Leukocyte Esterase Urine RBC (Auto) Assessment & Plan - Assessment and Plan (Free Text) Plan: No current active pulmonary issues. Patient is currently afebrile without leukocytosis, shortness of breath, or cough. Bibasilar opacity more likely related to CHF. Management as per cardiology/ primary. Please reconsult as needed.
--- NOTE | 2016-12-28 22:20 | CP.PCM.CON ---
Past Patient History - Infectious Disease Hx of Infectious Diseases: None ( ) - Tetanus Immunizations Tetanus Immunization: Unknown - Past Medical History & Family History Past Medical History?: Yes - Past Social History Smoking Status: Former Smoker - CARDIAC Hx Atrial Fibrillation: Yes Hx Cardia Arrhythmia: Yes (pacemaker, last changed in 2012, AICD fired in ED after run of [employer]-tach) Hx Congestive Heart Failure: Yes Hx Hypercholesterolemia: Yes Hx Hypertension: Yes Hx Pacemaker: Yes (last changed in 11/21/15) Hx Peripheral Edema: Yes - PULMONARY Hx Pneumonia: Yes (LONG AGO) - NEUROLOGICAL Hx Transient Ischemic Attacks (TIA): Yes (MAYBE NOT SURE) - HEENT Hx HEENT Problems: Yes Other/Comment: wears glasses for reading - RENAL Hx Chronic Kidney Disease: No - ENDOCRINE/METABOLIC Hx Endocrine Disorders: No - HEMATOLOGICAL/ONCOLOGICAL Hx Blood Disorders: No - INTEGUMENTARY Hx Dermatological Problems: No - MUSCULOSKELETAL/RHEUMATOLOGICAL Hx Musculoskeletal Disorders: Yes Hx Falls: No Hx Osteoarthritis: Yes - GASTROINTESTINAL Hx Gastrointestinal Disorders: Yes Hx Ulcer: Yes - GENITOURINARY/GYNECOLOGICAL Hx Genitourinary Disorders: No - PSYCHIATRIC Hx Anxiety: Yes Hx Substance Use: No - SURGICAL HISTORY Hx Surgeries: Yes Hx Cardiac Catheterization: Yes (last done in December 2014) Hx Open Heart Surgery: Yes (1996, s/p prosthetic aortic valve placement) Hx Valve Replacement: Yes Other/Comment: ICD -NOV-2015 - ANESTHESIA Hx Anesthesia: Yes Hx Anesthesia Reactions: No Hx Malignant Hyperthermia: No Has any member of the family had a problem w/ anesthesia?: No Meds Allergies/Adverse Reactions: Allergies Allergy/AdvReac Type Severity Reaction Status Date / Time Penicillins Allergy Verified 12/27/16 11:33 polyethylene glycol Allergy Verified 12/27/16 11:33 sodium bicarbonate Allergy Verified 12/27/16 11:33 - Medications Medications: Current Medications Amiodarone HCl (Cordarone) 100 mg PO DAILY [facility] Last Admin: 12/28/16 09:58 Dose: 100 mg Ascorbic Acid (Vitamin C 500 Mg Tab) 500 mg PO DAILY [facility] Aspirin (Aspirin Chewable) 81 mg PO DAILY [facility] Last Admin: 12/28/16 12:58 Dose: 81 mg Bumetanide (Bumex) 1 mg PO DAILY [facility] Last Admin: 12/28/16 09:57 Dose: 1 mg Docusate Sodium (Colace) 100 mg PO BID [facility] Last Admin: 12/28/16 17:23 Dose: 100 mg Fenofibrate (Tricor) 145 mg PO QPM [facility] Last Admin: 12/28/16 17:22 Dose: 145 mg Ferrous Sulfate (Feosol) 325 mg PO DAILY [facility] Last Admin: 12/28/16 09:58 Dose: 325 mg Heparin Sodium (Porcine) (Heparin) 5,000 units SC Q8 [facility] Last Admin: 12/28/16 21:50 Dose: Not Given Multivitamins/Minerals (Therapeutic-M Tab) 1 tab PO DAILY [facility] Last Admin: 12/28/16 10:01 Dose: 1 tab Pantoprazole Sodium (Protonix Ec Tab) 40 mg PO DAILY [facility] Last Admin: 12/28/16 10:00 Dose: 40 mg Ranolazine (Ranexa) 1,000 mg PO BID [facility] Last Admin: 12/28/16 17:23 Dose: 1,000 mg Rosuvastatin Calcium (Crestor) 10 mg PO HS [facility] Last Admin: 12/28/16 21:47 Dose: 10 mg Results - Vital Signs Recent Vital Signs: Last Vital Signs Temp 97.4 F L 12/28/16 16:53 Pulse 60 12/28/16 16:53 Resp 20 12/28/16 16:53 BP 112/72 12/28/16 16:53 Pulse Ox 100 12/28/16 16:53 - Labs Result Diagrams: 12/28/16 06:07 12/28/16 06:07 Labs: Laboratory Results - last 24 hr 12/27/16 12/28/16 12/28/16 22:33 06:07 06:09 WBC 5.8 RBC 3.81 L Hgb 12.5 Hct 37.1 MCV 97.4 H MCH 32.9 H MCHC 33.7 RDW 13.3 Plt Count 183 MPV 8.8 Neut % (Auto) 64.5 Lymph % (Auto) 24.5 [place] % (Auto) 8.6 Eos % (Auto) 1.7 Baso % (Auto) 0.7 Neut # 3.8 Lymph # 1.4 [place] # 0.5 Eos # 0.1 Baso # 0.0 PT 14.6 H INR 1.3 APTT 33 Sodium 142 Potassium 3.8 Chloride 101 Carbon Dioxide 24 Anion Gap 21 H BUN 21 H Creatinine 1.1 Est GFR ( Amer) > 60 Est GFR (Non-Af Amer) > 60 POC Glucose (mg/dL) 89 Random Glucose 90 Calcium 7.9 L Total Bilirubin 0.7 AST 17 D ALT 10 L D Alkaline Phosphatase 33 L D Total Protein 6.1 L Albumin 3.8 Globulin 2.2 Albumin/Globulin Ratio 1.7 Triglycerides 71 Cholesterol 87 LDL Cholesterol Direct 30 HDL Cholesterol 36 Urine Color Yellow Urine Clarity Clear Urine pH 6.0 Ur Specific [place] 1.008 Urine Protein Negative Urine Glucose (UA) Normal Urine Ketones Negative Urine Blood Negative Urine Nitrate Negative Urine Bilirubin Negative Urine Urobilinogen Normal Ur Leukocyte Esterase Neg Urine RBC (Auto) < 1 12/28/16 12/28/16 12/28/16 11:27 16:52 21:13 WBC RBC Hgb Hct MCV MCH MCHC RDW Plt Count MPV Neut % (Auto) Lymph % (Auto) [place] % (Auto) Eos % (Auto) Baso % (Auto) Neut # Lymph # [place] # Eos # Baso # PT INR APTT Sodium Potassium Chloride Carbon Dioxide Anion Gap BUN Creatinine Est GFR ( Amer) Est GFR (Non-Af Amer) POC Glucose (mg/dL) 88 125 H 122 H Random Glucose Calcium Total Bilirubin AST ALT Alkaline Phosphatase Total Protein Albumin Globulin Albumin/Globulin Ratio Triglycerides Cholesterol LDL Cholesterol Direct HDL Cholesterol Urine Color Urine Clarity Urine pH Ur Specific [place] Urine Protein Urine Glucose (UA) Urine Ketones Urine Blood Urine Nitrate Urine Bilirubin Urine Urobilinogen Ur Leukocyte Esterase Urine RBC (Auto)
[2016-12-29 06:38] LABS: BASO % 0.8 % (0.0-2.0); EOS # 0.1 K/uL (0.0-0.7); EOS % 1.8 % (0.0-4.0); HEMATOCRIT 36.9 % (35.0-51.0); LYMPH # 1.4 K/uL (1.0-4.3); LYMPH % 26.4 % (20.0-40.0); MEAN CELL VOLUME 97.1 fL (80.0-94.0); MEAN CORPUSCULAR HEMOGLOBIN 33.1 pg (27.0-31.0); MEAN CORPUSCULAR HGB CONC 34.1 g/dL (33.0-37.0); MEAN PLATELET VOLUME 9.3 fL (7.2-11.7); MONO # 0.6 K/uL (0.0-0.8); MONO % 10.6 % (0.0-10.0); RED CELL DISTRIBUTION WIDTH 13.2 % (11.5-14.5); WHITE BLOOD COUNT 5.3 K/uL (4.8-10.8)
[2016-12-29 07:39] LABS: CHLORIDE 100 mmol/L (98-107); POTASSIUM 3.5 mmol/L (3.6-5.2); SODIUM 139 mmol/L (132-148)
[2016-12-29 07:41] LABS: GFR AFRICAN-AMERICAN > 60
[2016-12-29 07:42] LABS: ALB/GLOB RATIO 1.8 (1.0-2.1); ALKALINE PHOSPHATASE 35 U/L (38-126); ALT/SGPT 11 U/L (21-72); AST/SGOT 19 U/L (17-59); BILIRUBIN,TOTAL 0.2 mg/dL (0.2-1.3); BLOOD UREA NITROGEN 17 mg/dL (9-20); CARBON DIOXIDE 23 mmol/L (22-30); GLUCOSE,RANDOM 99 mg/dL (75-110); PHOSPHOROUS 3.3 mg/dL (2.5-4.5); TOTAL PROTEIN 5.9 g/dL (6.3-8.3)
[2016-12-29] MEDS: Multivitamin With Minerals Tab PO SCH (09:26)
[2016-12-29] MEDS: Pantoprazole 40 mg EC Tab PO SCH (09:26)
[2016-12-29] MEDS: Ranolazine 500 mg Extended Release Tablets PO SCH ×2 (09:27→18:01)
[2016-12-29] MEDS ORDERED: Potassium Chloride 20 mEq ER Tab PO STA (09:56)
--- NOTE | 2016-12-29 13:14 | CP.PCM.PN ---
<Farhan Vallecillo - Last Filed: 12/29/16 13:11> Subjective - Date & Time of Evaluation Date of Evaluation: 12/29/16 Time of Evaluation: 07:32 - Subjective Subjective: Pt seen and examined. Pt resting in bed comfortably. Pt reports he is feeling well. Pt denies fever, chills, chest pain, shortness of breath, nausea, and vomiting. Objective - Vital Signs/Intake and Output Vital Signs (last 24 hours): Temp Pulse Resp BP Pulse Ox 98.2 F 62 18 105/67 98 12/29/16 07:15 12/29/16 08:00 12/29/16 07:15 12/29/16 07:15 12/29/16 07:15 Intake and Output: 12/29/16 12/29/16 06:59 18:59 Intake Total 240 Balance 240 - Medications Medications: Current Medications Amiodarone HCl (Cordarone) 100 mg PO DAILY [facility] Last Admin: 12/29/16 09:25 Dose: 100 mg Ascorbic Acid (Vitamin C 500 Mg Tab) 500 mg PO DAILY [facility] Last Admin: 12/29/16 09:26 Dose: 500 mg Aspirin (Aspirin Chewable) 81 mg PO DAILY [facility] Last Admin: 12/29/16 09:25 Dose: 81 mg Bumetanide (Bumex) 1 mg PO DAILY [facility] Last Admin: 12/29/16 09:25 Dose: 1 mg Docusate Sodium (Colace) 100 mg PO BID [facility] Last Admin: 12/29/16 09:25 Dose: 100 mg Fenofibrate (Tricor) 145 mg PO QPM [facility] Last Admin: 12/28/16 17:22 Dose: 145 mg Ferrous Sulfate (Feosol) 325 mg PO DAILY [facility] Last Admin: 12/29/16 09:26 Dose: 325 mg Heparin Sodium (Porcine) (Heparin) 5,000 units SC Q8 [facility] Last Admin: 12/29/16 05:32 Dose: 5,000 units Multivitamins/Minerals (Therapeutic-M Tab) 1 tab PO DAILY [facility] Last Admin: 12/29/16 09:26 Dose: 1 tab Pantoprazole Sodium (Protonix Ec Tab) 40 mg PO DAILY [facility] Last Admin: 12/29/16 09:26 Dose: 40 mg Ranolazine (Ranexa) 1,000 mg PO BID [facility] Last Admin: 12/29/16 09:27 Dose: 1,000 mg Rosuvastatin Calcium (Crestor) 10 mg PO HS [facility] Last Admin: 12/28/16 21:47 Dose: 10 mg - Labs Labs: 12/29/16 06:30 12/29/16 06:30 PT 14.6 SECONDS (9.7-12.2) H 12/28/16 06:07 INR 1.3 12/28/16 06:07 APTT 33 SECONDS (21-34) 12/28/16 06:07 - Constitutional Appears: No Acute Distress - Head Exam Head Exam: ATRAUMATIC, NORMOCEPHALIC - Eye Exam Eye Exam: EOMI, PERRL Pupil Exam: PERRL - Neck Exam Neck Exam: Normal Inspection - Respiratory Exam Respiratory Exam: Clear to Ausculation Bilateral. absent: Rales, Rhonchi, Wheezes - Cardiovascular Exam Cardiovascular Exam: Gallop, +S1, +S2 - GI/Abdominal Exam GI & Abdominal Exam: Soft, Tenderness. absent: Distended - Extremities Exam Extremities Exam: absent: Pedal Edema - Neurological Exam Neurological Exam: Alert, Awake, Oriented x3 - Psychiatric Exam Psychiatric exam: Normal Affect, Normal Mood - Skin Skin Exam: Normal Color, Warm Assessment and Plan - Assessment and Plan (Free Text) Assessment: Angina: Resolved Pulm consult, Dr. Carey, help appreciated ECHO from 05/2016: EF 25-30% CXR: shows mild venous congestion and left basilar opacity Troponin x 1 0.0230 Ranexa 1000 mg po tid Cardiology, Dr. Lucero consulted, help appreciated. CHF Exacerbation: Amiodarone 100 mg PO daily Ranexa 1,000 mg PO BID BNP 2940 CXR: shows mild venous congestion and left basilar opacity Echocardiogramfrom 05/2016: EF 25-30% Cardiology, Dr. Lucero, consulted. Help appreciated. Wink Cutter Operator, Dr. Hercules, consulted. Help appreciated. Pt will have pacemaker assessed as per Dr. Hercules Coronary Artery Disease: ASA 81 mg PO daily Crestor 10 mg PO HS Tricor 1 mg PO HS HTN: Home antihypertensive medications held due to hypotension Prophylactic Measures: GI: Protonix 40 mg po daily DVT: Heparin 5000 units sc q8h <Farhat Russo Jr. - Last Filed: 12/31/16 16:49> Objective - Vital Signs/Intake and Output Vital Signs (last 24 hours): Temp Pulse Resp BP Pulse Ox 97.4 F L 62 17 109/74 98 12/30/16 07:20 12/30/16 07:30 12/30/16 07:20 12/30/16 07:20 12/30/16 07:20 - Labs Labs: 12/30/16 06:05 12/30/16 06:05 PT 14.6 SECONDS (9.7-12.2) H 12/28/16 06:07 INR 1.3 12/28/16 06:07 APTT 33 SECONDS (21-34) 12/28/16 06:07 Attending/Attestation - Attestation I have personally seen and examined this patient.: Yes I have fully participated in the care of the patient.: Yes I have reviewed all pertinent clinical information, including history, physical exam and plan: Yes Notes (Text): 12/31/16 16:49 Patient seen and examined. Reviewed resident note and agree with plan of care and findings.
--- NOTE | 2016-12-29 16:59 | CP.PCM.CON ---
<Ethan Nobles - Last Filed: 12/29/16 16:50> History of Present Illness - History of Present Illness History of Present Illness: Cardiology Consultation Note Dr. Hercules CC: Chest Pain, Shortness of Breath HPI: This is a 66 year old male with a PMH notable for Aortic valve disease, CHF , CAD, and Biventricular ICD placement presenting for cardiac evaluation of acute chest pain, SOB and KEITH. EKG on admission showed wide QRS complex indicative of RBBB. Patient has surgical history of prosthetic aortic valve, biventricular ICD, and CABG. Patient sleeps with 2 pillows at night which is unchanged from his baseline. Patient reported to being able to walk 20+ blocks before experienceing any SOB. Patient denies dyspynea with ADL/IADLs. Patient has recent admission for 1 day last week due to similar symptoms. Patient's cardiac symptoms initially remitted, but have since returned prompting his return to the hospital. Presently, the patient denies all cardiopulmonary symptoms, fever, chills. PMD: Dr. Russo PMH: HTN, aortic valve disease, CHF, CAD Allergies: penicillin, polyethylene glycol, sodium bicarbonate PSH: prosthetic aortic valve, biventricular pacemaker, CABG Social: Former light smoker quit 24+ years ago, denies EtOH, illict drug use. Unemployed and lives alone Review of Systems - Constitutional Constitutional: absent: Chills, Fever - EENT Eyes: absent: Blind Spots, Change in Vision Ears: absent: Decreased Hearing, Tinnitus Nose/Mouth/Throat: absent: Nose Pain, Facial Pain, Neck Pain - Cardiovascular Cardiovascular: As Per HPI, Chest Pain. absent: Orthopnea, Palpitations, Syncope - Respiratory Respiratory: As Per HPI, Dyspnea, Dyspnea on Exertion. absent: Cough, Hemoptysis - Gastrointestinal Gastrointestinal: absent: Abdominal Pain, Constipation, Diarrhea, Nausea, Vomiting - Genitourinary Genitourinary: absent: Change in Urinary Stream - Musculoskeletal Musculoskeletal: absent: Abnormal Gait, Stiffness, Tingling - Integumentary Integumentary: absent: Lesions, Rash, Wounds - Neurological Neurological: absent: Frequent Falls, Memory Loss, Syncope, Weakness - Endocrine Endocrine: absent: Cold Intolorance, Heat Intolorance Past Patient History - Infectious Disease Hx of Infectious Diseases: None ( ) - Tetanus Immunizations Tetanus Immunization: Unknown - Past Medical History & Family History Past Medical History?: Yes - Past Social History Smoking Status: Former Smoker - CARDIAC Hx Atrial Fibrillation: Yes Hx Cardia Arrhythmia: Yes (pacemaker, last changed in 2012, AICD fired in ED after run of [employer]) Hx Congestive Heart Failure: Yes Hx Hypercholesterolemia: Yes Hx Hypertension: Yes Hx Pacemaker: Yes (last changed in 11/21/15) Hx Peripheral Edema: Yes - PULMONARY Hx Pneumonia: Yes (LONG AGO) - NEUROLOGICAL Hx Transient Ischemic Attacks (TIA): Yes (MAYBE NOT SURE) - HEENT Hx HEENT Problems: Yes Other/Comment: wears glasses for reading - RENAL Hx Chronic Kidney Disease: No - ENDOCRINE/METABOLIC Hx Endocrine Disorders: No - HEMATOLOGICAL/ONCOLOGICAL Hx Blood Disorders: No - INTEGUMENTARY Hx Dermatological Problems: No - MUSCULOSKELETAL/RHEUMATOLOGICAL Hx Musculoskeletal Disorders: Yes Hx Falls: No Hx Osteoarthritis: Yes - GASTROINTESTINAL Hx Gastrointestinal Disorders: Yes Hx Ulcer: Yes - GENITOURINARY/GYNECOLOGICAL Hx Genitourinary Disorders: No - PSYCHIATRIC Hx Anxiety: Yes Hx Substance Use: No - SURGICAL HISTORY Hx Surgeries: Yes Hx Cardiac Catheterization: Yes (last done in December 2014) Hx Open Heart Surgery: Yes (1996, s/p prosthetic aortic valve placement) Hx Valve Replacement: Yes Other/Comment: ICD 21-NOV-2015 - ANESTHESIA Hx Anesthesia: Yes Hx Anesthesia Reactions: No Hx Malignant Hyperthermia: No Has any member of the family had a problem w/ anesthesia?: No Meds Allergies/Adverse Reactions: Allergies Allergy/AdvReac Type Severity Reaction Status Date / Time Penicillins Allergy Verified 12/27/16 11:33 polyethylene glycol Allergy Verified 12/27/16 11:33 sodium bicarbonate Allergy Verified 12/27/16 11:33 - Medications Medications: Current Medications Amiodarone HCl (Cordarone) 100 mg PO DAILY [facility] Last Admin: 12/29/16 09:25 Dose: 100 mg Ascorbic Acid (Vitamin C 500 Mg Tab) 500 mg PO DAILY [facility] Last Admin: 12/29/16 09:26 Dose: 500 mg Aspirin (Aspirin Chewable) 81 mg PO DAILY [facility] Last Admin: 12/29/16 09:25 Dose: 81 mg Bumetanide (Bumex) 1 mg PO DAILY [facility] Last Admin: 12/29/16 09:25 Dose: 1 mg Docusate Sodium (Colace) 100 mg PO BID [facility] Last Admin: 12/29/16 09:25 Dose: 100 mg Fenofibrate (Tricor) 145 mg PO QPM [facility] Last Admin: 12/28/16 17:22 Dose: 145 mg Ferrous Sulfate (Feosol) 325 mg PO DAILY [facility] Last Admin: 12/29/16 09:26 Dose: 325 mg Heparin Sodium (Porcine) (Heparin) 5,000 units SC Q8 [facility] Last Admin: 12/29/16 13:33 Dose: 5,000 units Multivitamins/Minerals (Therapeutic-M Tab) 1 tab PO DAILY [facility] Last Admin: 12/29/16 09:26 Dose: 1 tab Pantoprazole Sodium (Protonix Ec Tab) 40 mg PO DAILY [facility] Last Admin: 12/29/16 09:26 Dose: 40 mg Ranolazine (Ranexa) 1,000 mg PO BID [facility] Last Admin: 12/29/16 09:27 Dose: 1,000 mg Rosuvastatin Calcium (Crestor) 10 mg PO HS [facility] Last Admin: 12/28/16 21:47 Dose: 10 mg Physical Exam - Constitutional Appears: Well, No Acute Distress - Head Exam Head Exam: ATRAUMATIC, NORMAL INSPECTION, NORMOCEPHALIC - Eye Exam Eye Exam: EOMI, Normal appearance, PERRL - ENT Exam ENT Exam: Mucous Membranes Moist - Respiratory Exam Respiratory Exam: Clear to Auscultation Bilateral, NORMAL BREATHING PATTERN. absent: Rhonchi, Wheezes - Cardiovascular Exam Cardiovascular Exam: REGULAR RHYTHM, RRR, +S1, +S2. absent: Diastolic murmur, Systolic Murmur - GI/Abdominal Exam GI & Abdominal Exam: Normal Bowel Sounds, Soft. absent: Distended, Guarding, Tenderness - Extremities Exam Extremities exam: Positive for: full ROM, normal inspection. Negative for: joint swelling, pedal edema - Back Exam Back exam: NORMAL INSPECTION. absent: CVA tenderness (L), CVA tenderness (R) - Neurological Exam Neurological exam: Alert, CN II-XII Intact, Normal Gait, Oriented x3 - Skin Skin Exam: Dry, Intact, Normal Color, Warm Results - Vital Signs Recent Vital Signs: Last Vital Signs Temp 97.2 F L 12/29/16 15:50 Pulse 65 12/29/16 15:50 Resp 20 12/29/16 15:50 BP 107/68 12/29/16 15:50 Pulse Ox 96 12/29/16 15:50 - Labs Result Diagrams: 12/29/16 06:30 12/29/16 06:30 Assessment & Plan (1) Nonischemic cardiomyopathy Status: Chronic (2) CHF (congestive heart failure) Status: Chronic (3) Intermittent palpitations Status: Chronic (4) Pacemaker Status: Chronic (5) AICD (automatic cardioverter/defibrillator) present Status: Chronic - Assessment and Plan (Free Text) Assessment: This is a 66 year old male with a PMH notable for Aortic valve disease, CHF, CAD , and Biventricular ICD placement presenting for cardiac evaluation of acute chest pain, SOB and KEITH. Plan: 1.) Chest Pain - ICD interrogation - Biv ICD functioning well - 2 episodes of non-sustained V-Tach : 12/20/11- 12 beats : 12/05/16- 9-10 beats - No defibrilations given - Hemodynamically stable - presently asymptomatic - Continue to follow with Dr. Hercules in his clinic Case Discussed with Dr. Diomedes Nobles PGY1 - Date & Time Date: 12/29/16 Time: 17:06 <Rohan Hercules - Last Filed: 01/02/17 20:31> Results - Vital Signs Recent Vital Signs: Last Vital Signs Temp 97.4 F L 12/30/16 07:20 Pulse 62 12/30/16 07:30 Resp 17 12/30/16 07:20 BP 109/74 12/30/16 07:20 Pulse Ox 98 12/30/16 07:20 - Labs Result Diagrams: 12/30/16 06:05 12/30/16 06:05 Attending/Attestation - Attestation I have personally seen and examined this patient.: Yes I have fully participated in the care of the patient.: Yes I have reviewed all pertinent clinical information: Yes Notes (Text): 01/02/17 20:30 bi v icd stable follow up with transplant dr Carmichael
--- NOTE | 2016-12-29 22:51 | CP.PCM.CON ---
History of Present Illness - History of Present Illness History of Present Illness: Patient seen and evaluated Admitted for atypical chest pain Past Patient History - Infectious Disease Hx of Infectious Diseases: None ( ) - Tetanus Immunizations Tetanus Immunization: Unknown - Past Medical History & Family History Past Medical History?: Yes - Past Social History Smoking Status: Former Smoker - CARDIAC Hx Atrial Fibrillation: Yes Hx Cardia Arrhythmia: Yes (pacemaker, last changed in 2012, AICD fired in ED after run of [employer]) Hx Congestive Heart Failure: Yes Hx Hypercholesterolemia: Yes Hx Hypertension: Yes Hx Pacemaker: Yes (last changed in 11/21/15) Hx Peripheral Edema: Yes - PULMONARY Hx Pneumonia: Yes (LONG AGO) - NEUROLOGICAL Hx Transient Ischemic Attacks (TIA): Yes (MAYBE NOT SURE) - HEENT Hx HEENT Problems: Yes Other/Comment: wears glasses for reading - RENAL Hx Chronic Kidney Disease: No - ENDOCRINE/METABOLIC Hx Endocrine Disorders: No - HEMATOLOGICAL/ONCOLOGICAL Hx Blood Disorders: No - INTEGUMENTARY Hx Dermatological Problems: No - MUSCULOSKELETAL/RHEUMATOLOGICAL Hx Musculoskeletal Disorders: Yes Hx Falls: No Hx Osteoarthritis: Yes - GASTROINTESTINAL Hx Gastrointestinal Disorders: Yes Hx Ulcer: Yes - GENITOURINARY/GYNECOLOGICAL Hx Genitourinary Disorders: No - PSYCHIATRIC Hx Anxiety: Yes Hx Substance Use: No - SURGICAL HISTORY Hx Surgeries: Yes Hx Cardiac Catheterization: Yes (last done in December 2014) Hx Open Heart Surgery: Yes (1996, s/p prosthetic aortic valve placement) Hx Valve Replacement: Yes Other/Comment: ICD 21-NOV-2015 - ANESTHESIA Hx Anesthesia: Yes Hx Anesthesia Reactions: No Hx Malignant Hyperthermia: No Has any member of the family had a problem w/ anesthesia?: No Meds Allergies/Adverse Reactions: Allergies Allergy/AdvReac Type Severity Reaction Status Date / Time Penicillins Allergy Verified 12/27/16 11:33 polyethylene glycol Allergy Verified 12/27/16 11:33 sodium bicarbonate Allergy Verified 12/27/16 11:33 - Medications Medications: Current Medications Amiodarone HCl (Cordarone) 100 mg PO DAILY [facility] Last Admin: 12/29/16 09:25 Dose: 100 mg Ascorbic Acid (Vitamin C 500 Mg Tab) 500 mg PO DAILY [facility] Last Admin: 12/29/16 09:26 Dose: 500 mg Aspirin (Aspirin Chewable) 81 mg PO DAILY [facility] Last Admin: 12/29/16 09:25 Dose: 81 mg Bumetanide (Bumex) 1 mg PO DAILY [facility] Last Admin: 12/29/16 09:25 Dose: 1 mg Docusate Sodium (Colace) 100 mg PO BID [facility] Last Admin: 12/29/16 18:00 Dose: 100 mg Fenofibrate (Tricor) 145 mg PO QPM [facility] Last Admin: 12/29/16 18:49 Dose: 145 mg Ferrous Sulfate (Feosol) 325 mg PO DAILY [facility] Last Admin: 12/29/16 09:26 Dose: 325 mg Heparin Sodium (Porcine) (Heparin) 5,000 units SC Q8 [facility] Last Admin: 12/29/16 22:19 Dose: 5,000 units Multivitamins/Minerals (Therapeutic-M Tab) 1 tab PO DAILY [facility] Last Admin: 12/29/16 09:26 Dose: 1 tab Pantoprazole Sodium (Protonix Ec Tab) 40 mg PO DAILY [facility] Last Admin: 12/29/16 09:26 Dose: 40 mg Ranolazine (Ranexa) 1,000 mg PO BID [facility] Last Admin: 12/29/16 18:01 Dose: 1,000 mg Rosuvastatin Calcium (Crestor) 10 mg PO HS [facility] Last Admin: 12/29/16 22:19 Dose: 10 mg Results - Vital Signs Recent Vital Signs: Last Vital Signs Temp 97.2 F L 12/29/16 15:50 Pulse 65 12/29/16 15:50 Resp 20 12/29/16 15:50 BP 107/68 12/29/16 15:50 Pulse Ox 96 12/29/16 15:50 - Labs Result Diagrams: 12/29/16 06:30 12/29/16 06:30 Labs: Laboratory Results - last 24 hr 12/29/16 12/29/16 16:23 21:02 POC Glucose (mg/dL) 116 H 102
[2016-12-30 06:24] LABS: BASO % 0.4 % (0.0-2.0); EOS # 0.1 K/uL (0.0-0.7); EOS % 1.6 % (0.0-4.0); HEMATOCRIT 37.5 % (35.0-51.0); LYMPH # 1.7 K/uL (1.0-4.3); LYMPH % 28.6 % (20.0-40.0); MEAN CELL VOLUME 96.7 fL (80.0-94.0); MEAN CORPUSCULAR HGB CONC 34.1 g/dL (33.0-37.0); MONO # 0.6 K/uL (0.0-0.8); MONO % 10.1 % (0.0-10.0); RED CELL DISTRIBUTION WIDTH 13.2 % (11.5-14.5); WHITE BLOOD COUNT 5.9 K/uL (4.8-10.8)
[2016-12-30 07:29] LABS: CHLORIDE 104 mmol/L (98-107)
[2016-12-30 07:30] LABS: POTASSIUM 3.5 mmol/L (3.6-5.2); SODIUM 140 mmol/L (132-148)
[2016-12-30 07:32] LABS: BILIRUBIN,TOTAL 0.4 mg/dL (0.2-1.3); GFR AFRICAN-AMERICAN > 60
[2016-12-30 07:33] LABS: ALB/GLOB RATIO 1.6 (1.0-2.1); ALKALINE PHOSPHATASE 34 U/L (38-126); ALT/SGPT 15 U/L (21-72); AST/SGOT 22 U/L (17-59); BLOOD UREA NITROGEN 16 mg/dL (9-20); CALCIUM 8.4 mg/dl (8.6-10.4); CARBON DIOXIDE 26 mmol/L (22-30); GLUCOSE,RANDOM 101 mg/dL (75-110); TOTAL PROTEIN 6.3 g/dL (6.3-8.3)
[2016-12-30 07:57] VITALS: PULSE 62
[2016-12-30 08:05] VITALS: BP 109/74; RESP 17; TEMP 97.4; O2SAT 98
[2016-12-30] MEDS: Multivitamin With Minerals Tab PO SCH (09:29)
[2016-12-30] MEDS: Pantoprazole 40 mg EC Tab PO SCH (09:30)
[2016-12-30] MEDS: Ranolazine 500 mg Extended Release Tablets PO SCH (09:31)
--- NOTE | 2016-12-30 09:41 | CP.PCM.PN ---
<Ethan Nobles - Last Filed: 12/30/16 14:33> Subjective - Date & Time of Evaluation Date of Evaluation: 12/30/16 Time of Evaluation: 09:36 - Subjective Subjective: Cardiology Progress Note Dr. Hercules Patient seen and examined at the bedside. No acute distress. No acute events overnight. Nursing staff reports no issues. The patient's ICD was interrogated yesterday. The patient is without complaints this morning. Patient denies fever, chills, headache, chest pain, palpitations, SOB, abdominal pain, N/V/D/C, changes in bowel/bladder, and extremity paresthesias. Objective - Vital Signs/Intake and Output Vital Signs (last 24 hours): Temp Pulse Resp BP Pulse Ox 97.4 F L 62 17 109/74 98 12/30/16 07:20 12/30/16 07:30 12/30/16 07:20 12/30/16 07:20 12/30/16 07:20 Intake and Output: 12/30/16 12/30/16 06:59 18:59 Intake Total 640 Balance 640 - Medications Medications: Current Medications Amiodarone HCl (Cordarone) 100 mg PO DAILY [facility] Last Admin: 12/30/16 09:32 Dose: 100 mg Ascorbic Acid (Vitamin C 500 Mg Tab) 500 mg PO DAILY [facility] Last Admin: 12/30/16 09:29 Dose: 500 mg Aspirin (Aspirin Chewable) 81 mg PO DAILY [facility] Last Admin: 12/30/16 09:29 Dose: 81 mg Bumetanide (Bumex) 1 mg PO DAILY [facility] Last Admin: 12/30/16 09:31 Dose: 1 mg Docusate Sodium (Colace) 100 mg PO BID [facility] Last Admin: 12/30/16 09:29 Dose: 100 mg Fenofibrate (Tricor) 145 mg PO QPM [facility] Last Admin: 12/29/16 18:49 Dose: 145 mg Ferrous Sulfate (Feosol) 325 mg PO DAILY [facility] Last Admin: 12/30/16 09:30 Dose: 325 mg Heparin Sodium (Porcine) (Heparin) 5,000 units SC Q8 [facility] Last Admin: 12/30/16 05:44 Dose: 5,000 units Multivitamins/Minerals (Therapeutic-M Tab) 1 tab PO DAILY [facility] Last Admin: 04/13/17 09:29 Dose: 1 tab Pantoprazole Sodium (Protonix Ec Tab) 40 mg PO DAILY [facility] Last Admin: 12/30/16 09:30 Dose: 40 mg Potassium Chloride (K-Dur 20 Meq Er Tab) 20 meq PO DAILY [facility] Ranolazine (Ranexa) 1,000 mg PO BID [facility] Last Admin: 12/30/16 09:31 Dose: 1,000 mg Rosuvastatin Calcium (Crestor) 10 mg PO HS [facility] Last Admin: 12/29/16 22:19 Dose: 10 mg - Labs Labs: 12/30/16 06:05 12/30/16 06:05 PT 14.6 SECONDS (9.7-12.2) H 12/28/16 06:07 INR 1.3 12/28/16 06:07 APTT 33 SECONDS (21-34) 12/28/16 06:07 - Additional Findings Additional findings: - Constitutional Appears: Well, No Acute Distress - Head Exam Head Exam: ATRAUMATIC, NORMAL INSPECTION, NORMOCEPHALIC - Eye Exam Eye Exam: EOMI, Normal appearance, PERRL - ENT Exam ENT Exam: Mucous Membranes Moist - Respiratory Exam Respiratory Exam: Clear to Auscultation Bilateral, NORMAL BREATHING PATTERN. absent: Rhonchi, Wheezes - Cardiovascular Exam Cardiovascular Exam: REGULAR RHYTHM, RRR, +S1, +S2. absent: Diastolic murmur, Systolic Murmur - GI/Abdominal Exam GI & Abdominal Exam: Normal Bowel Sounds, Soft. absent: Distended, Guarding, Tenderness - Extremities Exam Extremities exam: Positive for: full ROM, normal inspection. Negative for: joint swelling, pedal edema - Back Exam Back exam: NORMAL INSPECTION. absent: CVA tenderness (L), CVA tenderness (R) - Neurological Exam Neurological exam: Alert, CN II-XII Intact, Normal Gait, Oriented x3 - Skin Skin Exam: Dry, Intact, Normal Color, Warm Assessment and Plan (1) Nonischemic cardiomyopathy Status: Chronic (2) CHF (congestive heart failure) Status: Chronic (3) Intermittent palpitations Status: Chronic (4) Pacemaker Status: Chronic (5) AICD (automatic cardioverter/defibrillator) present Status: Chronic - Assessment and Plan (Free Text) Assessment: This is a 66 year old male with a PMH notable for Aortic valve disease, CHF, CAD , and Biventricular ICD placement presenting for cardiac evaluation of acute chest pain, SOB and KEITH. Plan: 1.) Chest Pain - 12/29/16 ICD interrogation - Biv ICD functioning well - 2 episodes of non-sustained V-Tach : 12/20/11- 12 beats : 12/05/16- 9-10 beats - No defibrilations given - Hemodynamically stable - presently asymptomatic - Patient stable for DC home. - continue home amiodarone and aspirin as directed - Please follow up with Dr. Hercules in his office/clinic as an outpatient for continued monitoring Case Discussed with Dr. Diomedes Nobles PGY1 <Rohan Hercules - Last Filed: 01/02/17 20:30> Objective - Vital Signs/Intake and Output Vital Signs (last 24 hours): Temp Pulse Resp BP Pulse Ox 97.4 F L 62 17 109/74 98 12/30/16 07:20 12/30/16 07:30 12/30/16 07:20 12/30/16 07:20 12/30/16 07:20 - Labs Labs: 12/30/16 06:05 12/30/16 06:05 PT 14.6 SECONDS (9.7-12.2) H 12/28/16 06:07 INR 1.3 12/28/16 06:07 APTT 33 SECONDS (21-34) 12/28/16 06:07 Attending/Attestation - Attestation I have personally seen and examined this patient.: Yes I have fully participated in the care of the patient.: Yes I have reviewed all pertinent clinical information, including history, physical exam and plan: Yes Notes (Text): 01/02/17 20:29 st joão icd no events stable
[2016-12-30] MEDS ORDERED: Potassium Chloride 20 mEq ER Tab PO SCH (10:00)
--- NOTE | 2016-12-30 11:43 | CP.PCM.DIS ---
Provider - Provider Date of Admission: 12/29/16 13:30 Attending physician: Farhat Russo Jr, MD Time Spent in preparation of Discharge (in minutes): 34 Hospital Course - Lab Results Lab Results: Most Recent Lab Values WBC 5.9 K/uL (4.8-10.8) 12/30/16 06:05 RBC 3.87 Mil/uL (4.40-5.90) L 12/30/16 06:05 Hgb 12.8 g/dL (12.0-18.0) 12/30/16 06:05 Hct 37.5 % (35.0-51.0) 12/30/16 06:05 MCV 96.7 fL (80.0-94.0) H 12/30/16 06:05 MCH 33.0 pg (27.0-31.0) H 12/30/16 06:05 MCHC 34.1 g/dL (33.0-37.0) 12/30/16 06:05 RDW 13.2 % (11.5-14.5) 12/30/16 06:05 Plt Count 183 K/uL (130-400) 12/30/16 06:05 MPV 9.0 fL (7.2-11.7) 12/30/16 06:05 Neut % (Auto) 59.3 % (50.0-75.0) 12/30/16 06:05 Lymph % (Auto) 28.6 % (20.0-40.0) 12/30/16 06:05 [place] % (Auto) 10.1 % (0.0-10.0) H 12/30/16 06:05 Eos % (Auto) 1.6 % (0.0-4.0) 12/30/16 06:05 Baso % (Auto) 0.4 % (0.0-2.0) 12/30/16 06:05 Neut # 3.5 K/uL (1.8-7.0) 12/30/16 06:05 Lymph # 1.7 K/uL (1.0-4.3) 12/30/16 06:05 [place] # 0.6 K/uL (0.0-0.8) 12/30/16 06:05 Eos # 0.1 K/uL (0.0-0.7) 12/30/16 06:05 Baso # 0.0 K/uL (0.0-0.2) 12/30/16 06:05 PT 14.6 SECONDS (9.7-12.2) H 12/28/16 06:07 INR 1.3 12/28/16 06:07 APTT 33 SECONDS (21-34) 12/28/16 06:07 Sodium 140 mmol/L (132-148) 12/30/16 06:05 Potassium 3.5 mmol/L (3.6-5.2) L 12/30/16 06:05 Chloride 104 mmol/L (98-107) 12/30/16 06:05 Carbon Dioxide 26 mmol/L (22-30) 12/30/16 06:05 Anion Gap 14 (10-20) 12/30/16 06:05 BUN 16 mg/dL (9-20) 12/30/16 06:05 Creatinine 1.2 MG/DL (0.8-1.5) 12/30/16 06:05 Est GFR ( Amer) > 60 12/30/16 06:05 Est GFR (Non-Af Amer) > 60 12/30/16 06:05 POC Glucose (mg/dL) 104 mg/dL (65-110) 12/30/16 06:05 Random Glucose 101 mg/dL (75-110) 12/30/16 06:05 Calcium 8.4 mg/dl (8.6-10.4) L 12/30/16 06:05 Phosphorus 3.3 mg/dL (2.5-4.5) 12/29/16 06:30 Magnesium 2.0 mg/dL (1.6-2.3) 12/29/16 06:30 Total Bilirubin 0.4 mg/dL (0.2-1.3) 12/30/16 06:05 AST 22 U/L (17-59) 12/30/16 06:05 ALT 15 U/L (21-72) L D 12/30/16 06:05 Alkaline Phosphatase 34 U/L (38-126) L 12/30/16 06:05 Total Creatine Kinase 61 U/L (55-170) 12/27/16 13:12 CK-MB (Mass) 1.24 ng/mL (0.0-3.38) 12/27/16 13:12 Troponin I 0.0230 ng/mL (0.00-0.120) 12/27/16 13:12 NT-Pro-B Natriuret Pep 2940 pg/mL (0-900) H 12/27/16 13:12 Total Protein 6.3 g/dL (6.3-8.3) 12/30/16 06:05 Albumin 3.9 g/dL (3.5-5.0) 12/30/16 06:05 Globulin 2.4 gm/dL (2.2-3.9) 12/30/16 06:05 Albumin/Globulin Ratio 1.6 (1.0-2.1) 12/30/16 06:05 Triglycerides 71 mg/dL (0-149) 12/28/16 06:07 Cholesterol 87 mg/dL (0-199) 12/28/16 06:07 LDL Cholesterol Direct 30 mg/dL (0-129) 12/28/16 06:07 HDL Cholesterol 36 mg/dL (30-70) 12/28/16 06:07 Lipase 76 U/L (23-300) 12/27/16 13:12 Urine Color Yellow (YELLOW) 12/27/16 22:33 Urine Clarity Clear (Clear) 12/27/16 22:33 Urine pH 6.0 (5.0-8.0) 12/27/16 22:33 Ur Specific [place] 1.008 (1.003-1.030) 12/27/16 22:33 Urine Protein Negative mg/dL (NEGATIVE) 12/27/16 22:33 Urine Glucose (UA) Normal mg/dL (Normal) 12/27/16 22:33 Urine Ketones Negative mg/dL (NEGATIVE) 12/27/16 22:33 Urine Blood Negative (NEGATIVE) 12/27/16 22:33 Urine Nitrate Negative (NEGATIVE) 12/27/16 22:33 Urine Bilirubin Negative (NEGATIVE) 12/27/16 22:33 Urine Urobilinogen Normal mg/dL (0.2-1.0) 12/27/16 22:33 Ur Leukocyte Esterase Neg [place]/uL (Negative) 12/27/16 22:33 Urine RBC (Auto) < 1 /hpf (0-3) 12/27/16 22:33 - Hospital Course Hospital Course: HPI: Pt is a 66 year old male with a PMHx of HTN, congestive heart failure, coronary artery disease, and aortic valve disease s/p surgery admitted for shortness of breath and chest pain. Hospital Course: Pt was admitted for angina and CHF exacerbation. Cardiology, Dr. Lucero, was consulted. Electrophysiolgoist, Dr. Hercules, was consulted. 3D Animator, Dr. Carey, was consulted. CXR showed mild venous congestion and left basilar opacity (please see full report). First set of cardiac enzymes were 0.0230. Echocardiogram from 05/2016 revealed an ejection fraction of 25-30% . Pro-BNP was 2940. Pt was hypotensive upon arrival and throughout hospital stay so anti-hypertensive medications of metoprolol, enalapril, and spirinolactone were held. Pt was started on home medications of ranexa, amoidarone, aspirin, crestor, and tricor. Pt had pacemaker evaluated as per Dr. Hercules. Pt reports that he his clinical symptoms had resolved and he no longer had any chest heaviness or shortness of breath. Pt was cleared for discharge by Dr. Hercules. Discharge Exam - Head Exam Head Exam: ATRAUMATIC, NORMAL INSPECTION, NORMOCEPHALIC - Eye Exam Eye Exam: EOMI, PERRL - ENT Exam ENT Exam: Mucous Membranes Moist. absent: Mucous Membranes Dry - Respiratory Exam Respiratory Exam: Prolonged Expiratory Phase. absent: Rales, Rhonchi - Cardiovascular Exam Cardiovascular Exam: Gallop, +S1, +S2. absent: Rubs - GI/Abdominal Exam GI & Abdominal Exam: Normal Bowel Sounds, Soft. absent: Distended, Tenderness - Extremities Exam Extremities exam: full ROM - Neurological Exam Neurological exam: Alert, Oriented x3 - Psychiatric Exam Psychiatric exam: Normal Affect, Normal Mood - Skin Skin Exam: Normal Color, Warm Discharge Plan - Follow Up Plan Condition: FAIR Disposition: HOME/ ROUTINE Patient education suggested?: Yes Additional Instructions: Please follow up with primary medical doctor, Dr. Russo, within 3 days to check blood pressure and adjust blood pressure medications. Please hold the following medications: enalapril, metoprolol, spirinolactone until follow up with Dr. Russo. Please resume all other home medications. Please return to the hospital if symptoms worsen or new symptoms arise. Referrals: Farhat Russo Jr., MD [Medical Doctor] -
--- NOTE | 2016-12-30 12:56 | CARD ---
APPROVED REPORT EKG Measurement Heart [id number] <Conclusion> Wide QRS rhythm Right bundle branch block Inferior infarct, age undetermined T wave abnormality, consider lateral ischemia Abnormal ECG
--- NOTE | 2017-01-06 02:38 | PCM.HF ---
Heart Failure Core Measure - Heart Failure Ejection Fraction: Less Than 40 % MASSIEL Inhibitor Prescribed: Yes Beta-Suha Prescribed: Metoprolol Succinate Angiotensin II Receptor Suha Prescribed: No Contraindication/Reason for not providing: on MASSIEL-Inhibitor Aldosterone Antagonist Prescribed: Yes
--- NOTE | 2017-01-09 18:21 | PCM.HF ---
Heart Failure Core Measure - Heart Failure Ejection Fraction: Less Than 40 % Left Ventricular Function to be assessed after discharge: Yes MASSIEL Inhibitor Prescribed: Yes Beta-Suha Prescribed: Metoprolol Succinate Angiotensin II Receptor Suha Prescribed: No Contraindication/Reason for not providing: on MASSIEL inhibitor AnticoagulationTherapy for Atrial Fibrillation/Atrialflutter: No Contraindication/Reason for not providing: no history of atrial fibrillation Aldosterone Antagonist Prescribed: Yes Hydralazine Nitrate Prescribed: No Contraindication/Reason for not providing: on MASSIEL inhibitor Implantable Cardioverter Defibrillator Therapy: Yes Cardiac Resynchronization Therapy Prescribed: No Contraindication/Reason for not providing: As per cardio - Follow up Will be discharged to: Home Follow Up Date (must be within 7 days from discharge): 01/07/17 Follow Up Time: 09:00
== END 2016-12-30 15:10 | disposition home or self-care (01) | DRG 292 ==
LOC: C.ER 11:26 → C.9E 15:05 → C.6T 16:53 → OBSVTOIN 12-29 13:30
PROVIDERS: ADMIT Internal Medicine; ATTEND Internal Medicine
PROC: 4B02XTZ Measurement of Cardiac Defibrillator, External Approach (ICD-10-PCS; principal; 2016-12-29)
DX: I11.0 Hypertensive heart disease with heart failure (principal); I47.2 Ventricular tachycardia; I42.8 Other cardiomyopathies; R07.89 Other chest pain; I25.10 Atherosclerotic heart disease of native coronary artery without angina pectoris; I50.9 Heart failure, unspecified; E83.42 Hypomagnesemia; R06.02 Shortness of breath; I48.91 Unspecified atrial fibrillation; E78.00 Pure hypercholesterolemia, unspecified; Z95.810 Presence of automatic (implantable) cardiac defibrillator; Z95.2 Presence of prosthetic heart valve; Z95.1 Presence of aortocoronary bypass graft; Z88.0 Allergy status to penicillin; Z88.8 Allergy status to other drugs, medicaments and biological substances; Z87.891 Personal history of nicotine dependence